=== PATIENT | female | born 1990 | race Caucasian/White ===

== ENCOUNTER 2017-05-02 05:10 | Emergency (ER) | payer OTHER ==
[2017-05-02 05:15] VITALS: RESP 16
[2017-05-02] MEDS ORDERED: KETOROLAC 30 MG/ML 1 ML VIAL IVP STA (05:38)
--- NOTE | 2017-05-02 05:43 | ED ---
Abdominal Pain HPI - General Chief Complaint: Abdominal Pain Stated Complaint: abd pain Time Seen by Provider: 05/02/17 05:27 Source: patient Mode of arrival: ambulatory Limitations: no limitations - History of Present Illness Initial Comments: This patient is 26-year-old woman presenting with left upper quadrant abdominal pain that has been going on for a little less than 24 hours now. Patient states that the pain is aching, constant, severe in intensity. She states that it's worse with pressing on the area. She has not noted any relieving factors. Patient denies having any associated symptoms. MD Complaint: abdominal pain Onset/Timin -: days(s) Location: [facility] Radiation: L flank Migration to: no migration Severity: severe Quality: sharp Consistency: constant Improves With: nothing Worsens With: other (palpation) Associated Symptoms: denies other symptoms - Related Data Home Medications Medication Instructions Recorded Confirmed HYDROcodone/APAP 5-325MG [[place] 1 tab PO QID PRN 01/08/16 01/08/16 5-325] Ibuprofen [Ibuprofen] 1 tab PO QID PRN 01/08/16 01/08/16 Previous Rx's Medication Instructions Recorded Hydrocodone/Acetaminophen [[place] 1 - 2 each PO Q4HR PRN #30 tab 01/08/16 5-325] Hydrocodone/Acetaminophen [[place] 1 each PO Q6HR PRN #20 tab 05/02/17 5-325] Ondansetron Odt [Zofran ODT] 4 mg PO Q8HR PRN #10 tab 05/02/17 Allergies Allergy/AdvReac Type Severity Reaction Status Date / Time codeine Allergy Rash/Hives Verified 05/02/17 05:15 Penicillins Allergy Unknown Verified 05/02/17 05:15 Review of Systems ROS Statement: Those systems with pertinent positive or pertinent negative responses have been documented in the HPI. ROS Other: All systems not noted in ROS Statement are negative. Constitutional: Denies: fever, chills Respiratory: Denies: cough, dyspnea Cardiovascular: Denies: chest pain, palpitations, edema Gastrointestinal: Reports: abdominal pain. Denies: nausea, vomiting, diarrhea, constipation, melena, hematochezia Genitourinary: Denies: dysuria, frequency, hematuria, abnormal menses Musculoskeletal: Denies: back pain Skin: Denies: rash Neurological: Denies: headache Past Medical History Past Medical History: No Reported History History of Any Multi-Drug Resistant Organisms: None Reported Past Surgical History: Tonsillectomy Past Psychological History: No Psychological Hx Reported Smoking Status: Current every day smoker Past Alcohol Use History: None Reported Past Drug Use History: None Reported General Exam Limitations: no limitations General appearance: alert, in no apparent distress, obese Head exam: Present: atraumatic, normocephalic Eye exam: Present: normal appearance. Absent: scleral icterus, conjunctival injection ENT exam: Present: normal oropharynx Respiratory exam: Present: normal lung sounds bilaterally. Absent: respiratory distress, wheezes, rales, rhonchi, stridor Cardiovascular Exam: Present: regular rate, normal rhythm, normal heart sounds. Absent: systolic murmur, diastolic murmur, rubs, gallop GI/Abdominal exam: Present: soft, tenderness, normal bowel sounds. Absent: distended, guarding, rebound, rigid, mass, pulsatile mass, hernia Extremities exam: Present: normal inspection, normal capillary refill. Absent: pedal edema, calf tenderness Back exam: Present: normal inspection, CVA tenderness (L). Absent: CVA tenderness (R) Neurological exam: Present: alert Skin exam: Present: warm, dry, intact, normal color. Absent: rash Course Vital Signs 05/02/17 05/02/17 05:13 07:21 Temperature 96.8 F L 97.7 F Pulse Rate 72 60 Respiratory 16 16 Rate Blood Pressure 130/79 111/55 O2 Sat by Pulse 100 97 Oximetry Medical Decision Making - Lab Data Result diagrams: 05/02/17 05:51 05/02/17 05:51 Lab Results 05/02/17 05/02/17 05/02/17 Range/Units 05:51 05:51 05:53 WBC 8.9 (3.8-10.6) k/uL RBC 4.58 (3.80-5.40) m/uL Hgb 14.0 (11.4-16.0) gm/dL Hct 42.9 (34.0-46.0) % MCV 93.5 (80.0-100.0) fL MCH 30.6 (25.0-35.0) pg MCHC 32.8 (31.0-37.0) g/dL RDW 13.7 (11.5-15.5) % Plt Count 284 (150-450) k/uL Neutrophils % 51 % Lymphocytes % 40 % Monocytes % 5 % Eosinophils % 2 % Basophils % 1 % Neutrophils # 4.5 (1.3-7.7) k/uL Lymphocytes # 3.5 (1.0-4.8) k/uL Monocytes # 0.4 (0-1.0) k/uL Eosinophils # 0.2 (0-0.7) k/uL Basophils # 0.0 (0-0.2) k/uL Sodium 141 (137-145) mmol/L Potassium 4.4 (3.5-5.1) mmol/L Chloride 107 (98-107) mmol/L Carbon Dioxide 24 (22-30) mmol/L Anion Gap 10 mmol/L BUN 9 (7-17) mg/dL Creatinine 0.58 (0.52-1.04) mg/dL Est GFR (MDRD) Af Amer >60 (>60 ml/min/1.73 sqM) Est GFR (MDRD) Non-Af >60 (>60 ml/min/1.73 sqM) Glucose 92 (74-99) mg/dL Calcium 9.8 (8.4-10.2) mg/dL Total Bilirubin 0.4 (0.2-1.3) mg/dL AST 41 H (14-36) U/L ALT 91 H (9-52) U/L Alkaline Phosphatase 93 (38-126) U/L Total Protein 7.2 (6.3-8.2) g/dL Albumin 4.2 (3.5-5.0) g/dL Amylase <30 L (30-110) U/L Lipase 55 (23-300) U/L Urine Color Urine Appearance (Clear) Urine pH (5.0-8.0) Ur Specific [place] (1.001-1.035) Urine Protein (Negative) Urine Glucose (UA) (Negative) Urine Ketones (Negative) Urine Blood (Negative) Urine Nitrite (Negative) Urine Bilirubin (Negative) Urine Urobilinogen (<2.0) mg/dL Ur Leukocyte Esterase (Negative) Urine RBC (0-5) /hpf Urine WBC (0-5) /hpf Ur Squamous Epith Cells (0-4) /hpf Urine Bacteria (None) /hpf Hyaline Casts (0-2) /lpf Urine Mucus (None) /hpf Urine HCG, Qual Not Detected (Not Detectd) 05/02/17 Range/Units 05:53 WBC (3.8-10.6) k/uL RBC (3.80-5.40) m/uL Hgb (11.4-16.0) gm/dL Hct (34.0-46.0) % MCV (80.0-100.0) fL MCH (25.0-35.0) pg MCHC (31.0-37.0) g/dL RDW (11.5-15.5) % Plt Count (150-450) k/uL Neutrophils % % Lymphocytes % % Monocytes % % Eosinophils % % Basophils % % Neutrophils # (1.3-7.7) k/uL Lymphocytes # (1.0-4.8) k/uL Monocytes # (0-1.0) k/uL Eosinophils # (0-0.7) k/uL Basophils # (0-0.2) k/uL Sodium (137-145) mmol/L Potassium (3.5-5.1) mmol/L Chloride (98-107) mmol/L Carbon Dioxide (22-30) mmol/L Anion Gap mmol/L BUN (7-17) mg/dL Creatinine (0.52-1.04) mg/dL Est GFR (MDRD) Af Amer (>60 ml/min/1.73 sqM) Est GFR (MDRD) Non-Af (>60 ml/min/1.73 sqM) Glucose (74-99) mg/dL Calcium (8.4-10.2) mg/dL Total Bilirubin (0.2-1.3) mg/dL AST (14-36) U/L ALT (9-52) U/L Alkaline Phosphatase (38-126) U/L Total Protein (6.3-8.2) g/dL Albumin (3.5-5.0) g/dL Amylase (30-110) U/L Lipase (23-300) U/L Urine Color Yellow Urine Appearance Cloudy H (Clear) Urine pH 5.5 (5.0-8.0) Ur Specific [place] 1.019 (1.001-1.035) Urine Protein Trace H (Negative) Urine Glucose (UA) Negative (Negative) Urine Ketones 2+ H (Negative) Urine Blood Negative (Negative) Urine Nitrite Negative (Negative) Urine Bilirubin Negative (Negative) Urine Urobilinogen 2.0 (<2.0) mg/dL Ur Leukocyte Esterase Negative (Negative) Urine RBC 1 (0-5) /hpf Urine WBC 3 (0-5) /hpf Ur Squamous Epith Cells 9 H (0-4) /hpf Urine Bacteria Rare H (None) /hpf Hyaline Casts 3 H (0-2) /lpf Urine Mucus Many H (None) /hpf Urine HCG, Qual (Not Detectd) Disposition Clinical Impression: Epiploic appendagitis, Abdominal pain Disposition: HOME SELF-CARE Condition: Fair Instructions: Abdominal Pain (ED) Prescriptions: Hydrocodone/Acetaminophen [[place] 5-325] 1 each PO Q6HR PRN #20 tab PRN Reason: Pain Ondansetron Odt [Zofran ODT] 4 mg PO Q8HR PRN #10 tab PRN Reason: Nausea Referrals: Nolan Reyes DO [Primary Care Provider] - 1-2 days
[2017-05-02 06:10] LABS: Basophils % (A) 1 %; CH 30.8; CHCM 33.1; Eosinophils # (A) 0.2 k/uL (0-0.7); Eosinophils % (A) 2 %; HCT 42.9 % (34.0-46.0); Luc # (Auto) 0.17; Luc % (Auto) 2; Lymphocytes # (A) 3.5 k/uL (1.0-4.8); Lymphocytes % (A) 40 %; MCH 30.6 pg (25.0-35.0); MCHC 32.8 g/dL (31.0-37.0); MCV 93.5 fL (80.0-100.0); Mean Platelet Volume 7.7; Monocytes # (A) 0.4 k/uL (0-1.0); Monocytes % (A) 5 %; Neutrophils # (A) 4.5 k/uL (1.3-7.7); Neutrophils % (A) 51 %; RBC 4.58 m/uL (3.80-5.40); RDW 13.7 % (11.5-15.5); WBC 8.9 k/uL (3.8-10.6); WBC (Perox) 8.93
[2017-05-02 06:14] LABS: Appearance,Urine Cloudy (Clear); Bacteria,Urine Rare /hpf; Bilirubin,Urine Negative (Negative); Glucose,Urine (UA) Negative (Negative); Ketones,Urine 2+ (Negative); Leukocyte Esterase,Urine Negative (Negative); Mucus,Urine Many /hpf; Nitrite,Urine Negative (Negative); PH, Urine 5.5 (5.0-8.0); Particle Count 11476; Protein,Urine Trace (Negative); RBC,Urine 1 /hpf (0-5); Specific Gravity,Urine 1.019 (1.001-1.035); Squamous Epithelial Cell,Urine 9 /hpf (0-4); UA Billing (MACRO vs. MICRO) MICRO; WBC,Urine 3 /hpf (0-5)
[2017-05-02 06:18] LABS: ALT 91 U/L (9-52); AST 41 U/L (14-36); Alkaline Phosphatase 93 U/L (38-126); Amylase <30 U/L (30-110); Anion Gap 10 mmol/L; Blood Urea Nitrogen 9 mg/dL (7-17); Calcium 9.8 mg/dL (8.4-10.2); Carbon Dioxide 24 mmol/L (22-30); Chloride 107 mmol/L (98-107); Glucose 92 mg/dL (74-99); Non-African American GFR(MDRD) >60 (>60 ml/min/1.73 sqM); Potassium 4.4 mmol/L (3.5-5.1); Sodium 141 mmol/L (137-145); Total Bilirubin 0.4 mg/dL (0.2-1.3); Total Protein 7.2 g/dL (6.3-8.2)
[2017-05-02 07:21] VITALS: BP 111/55; PULSE 60; TEMP 97.7
--- NOTE | 2017-05-02 07:39 | CT ---
EXAM: CT Abdomen and Pelvis Without Intravenous Contrast CLINICAL HISTORY: Reason: abdominal pain TECHNIQUE: Axial computed tomography images of the abdomen and pelvis without intravenous contrast. CTDI is 21.68 mGy and DLP is 1228 mGy-cm. This CT exam was performed using one or more of the following dose reduction techniques: automated exposure control, adjustment of the mA and/or kV according to patient size, and/or use of iterative reconstruction technique. COMPARISON: 01/08/16 FINDINGS: Lower thorax: Bibasilar atelectasis Small right pericardiac lymph node, unchanged compared to the prior study. Small hiatal hernia. ABDOMEN: Liver: Mild fatty infiltration of the liver. Mild hepatomegaly Gallbladder and bile ducts: Status post cholecystectomy. No ductal dilation. Pancreas: Unremarkable. No ductal dilation. Spleen: . Prominent spleen. Adrenals: Unremarkable. No mass. Kidneys and ureters: Unremarkable. No obstructing stones. No hydronephrosis. Stomach and bowel: Mild soft tissue stranding adjacent to the proximal descending colon (image 70 through 78). No evidence for small bowel obstruction. No mucosal thickening. Appendix: No CT evidence for appendicitis. PELVIS: Bladder: No bladder calcification. Mild thickening of the bladder wall likely due to underdistention. No stones. Reproductive: Small cystic lesion along the left pelvic sidewall likely ovarian cyst. This measures 2.4 cm. This is likely benign. ABDOMEN and PELVIS: Intraperitoneal space: Trace free fluid in the pelvis likely physiologic. No free air. Bones/joints: No acute fracture. No dislocation. Soft tissues: Unremarkable. Vasculature: Unremarkable. No abdominal aortic aneurysm. Lymph nodes: Small retroperitoneal lymph nodes, unchanged and likely reactive. Small mesenteric and pericecal lymph nodes, nonspecific. These appear unchanged compared to the prior study. Periumbilical hernia containing fat. IMPRESSION: Finding adjacent to the proximal descending colon likely epiploic appendagitis No renal or ureteral calculus. Left adnexal cyst, likely benign. Trace free fluid in the pelvis, nonspecific and likely physiologic. Additional findings as noted above . [employer] 05/02/17 07:56 Verify Receipt Verified receipt with AMANDEEP Joyce for Dr. Angeles on 05/02 07:55 (-05:00)
[2017-05-02] MEDS ORDERED: MORPHINE SULFATE 4 MG/ML SYRINGE IV STA (07:41)
== END 2017-05-02 08:00 | disposition home or self-care (01) ==
LOC: EC 05:10
DX: K63.89 Other specified diseases of intestine (principal); F17.200 Nicotine dependence, unspecified, uncomplicated; Z88.0 Allergy status to penicillin; Z88.5 Allergy status to narcotic agent
CPT/HCPCS: 36415; 80053; 82150; 83690; 85025; 81001; 81025; 74176; 99284; 96374; 96375; J2270; J1885

== ENCOUNTER 2017-05-29 19:01 | Emergency (ER) | payer OTHER ==
[2017-05-29 19:13] VITALS: BP 146/63; PULSE 105; RESP 18; TEMP 98.2
--- NOTE | 2017-05-29 19:22 | ED ---
General Adult HPI - General Chief complaint: Extremity Injury, Upper Stated complaint: rt hand injury Time Seen by Provider: 05/29/17 19:13 Source: patient, RN notes reviewed Mode of arrival: ambulatory Limitations: no limitations - History of Present Illness Initial comments: Patient 26-year-old female who presents emergency room today with a chief complaint of an injury to the right hand that occurred early today. Patient states she actually shorter hand in the car door. Does admit to pain around the first and second MCP joints. Patient does admit to pain with flexion. Denies any other complaints or symptoms. Patient denies any recent fever, chills , shortness of breath, chest pain, back pain, abdominal pain, nausea or vomiting , numbness or tingling, or any other complaints. - Related Data Home Medications Medication Instructions Recorded Confirmed Ibuprofen [Motrin] 200 - 400 mg PO Q6H PRN 05/29/17 05/29/17 Allergies Allergy/AdvReac Type Severity Reaction Status Date / Time codeine Allergy Rash/Hives Verified 05/29/17 19:23 Penicillins Allergy Unknown Verified 05/29/17 19:23 Review of Systems ROS Statement: Those systems with pertinent positive or pertinent negative responses have been documented in the HPI. ROS Other: All systems not noted in ROS Statement are negative. Past Medical History Past Medical History: No Reported History History of Any Multi-Drug Resistant Organisms: None Reported Past Surgical History: Cholecystectomy, Tonsillectomy Past Psychological History: No Psychological Hx Reported Smoking Status: Current every day smoker Past Alcohol Use History: None Reported Past Drug Use History: None Reported General Exam - General Exam Comments Initial Comments: General: The patient is awake and alert, in no distress, and does not appear acutely ill. Neck: The neck is supple, there is no tenderness or JVD. Cardiovascular: There is a regular rate and rhythm. No murmur, rub or gallop is appreciated. Respiratory: Lungs are clear to auscultation, respirations are non-labored, breath sounds are equal. No wheezes, stridor, rales, or rhonchi. Musculoskeletal: Patient does have a normal appearance of the right hand no obvious swelling, bruising, or deformity. Patient has Refill less than 2 seconds. Sensations are intact. Pulses equal bilaterally 2+. shows good range of motion. Does have tenderness on palpation to the proximal second and third digits and MCP joint. Neurological: A&O x 3. CN II-XII intact, There are no obvious motor or sensory deficits. Coordination appears grossly intact. Speech is normal. Skin: Skin is warm and dry and no rashes or lesions are noted. Psychiatric: Normal mood and affect. Limitations: no limitations Course Vital Signs 05/29/17 19:11 Temperature 98.2 F Pulse Rate 105 H Respiratory 18 Rate Blood Pressure 146/63 O2 Sat by Pulse 98 Oximetry Medical Decision Making - Medical Decision Making X-ray reviewed shows no evidence for acute fracture dislocation. Results were discussed with the patient. Advised to continue ice elevate the affected area and follow-up in 7-10 days for repeat x-rays if symptoms persist. Disposition Clinical Impression: Contusion, hand Disposition: HOME SELF-CARE Condition: Good Instructions: Contusion in Adults (ED) Additional Instructions: Please continue to ice elevate the affected area at least 4 times a day for 20 minutes at a time. Please use Tylenol/ibuprofen for pain as needed. Please follow-up the family doctor or orthopedics in 7-10 days if symptoms persist for repeat x-rays. Please return to emergency room for any other concerns. Referrals: Nolan Reyes DO [Primary Care Provider] - 1-2 days Sam Marie MD [STAFF PHYSICIAN] - 1-2 days Time of Disposition: 20:08
--- NOTE | 2017-05-29 20:28 | XR ---
PROCEDURE: XR hand complete RT, 3 views DATE AND TIME: 05/29/2017 7:53 PM REFERRING PHYSICIAN: Robinson Murrieta CLINICAL INDICATION: PHH, Pain. Right hand pain at the second digit after trauma TECHNIQUE: Department protocol. COMPARISON: None FINDINGS: BONES AND JOINTS: There is no fracture or malalignment. SOFT TISSUES: There is a 1 mm metallic opacity within the palmar soft tissues. This projects immediat aric medial to the neck of the fourth metacarpal on the AP view, immediately over the fourth metacarpa l neck on the oblique AP view, and in the far anterior volar soft tissues on the lateral view. The so ft tissues are otherwise unremarkable. IMPRESSION: 1. NEGATIVE FOR FRACTURE OR MALALIGNMENT. 2. 1 MM METALLIC OPACITY DESCRIBED.
== END 2017-05-29 20:28 | disposition home or self-care (01) ==
LOC: EC 19:01
DX: S60.221A Contusion of right hand, initial encounter (principal); F17.200 Nicotine dependence, unspecified, uncomplicated; Z88.0 Allergy status to penicillin; Z88.5 Allergy status to narcotic agent; W23.0XXA Caught, crushed, jammed, or pinched between moving objects, initial encounter
CPT/HCPCS: 99283

== ENCOUNTER 2017-06-27 14:08 | Emergency (ER) | payer OTHER ==
[2017-06-27 14:17] VITALS: RESP 18
[2017-06-27] MEDS ORDERED: MAG HYDROX/AL HYDROX/SIMETH 30 ML, HYOSCYAMINE ELIXIR 10 ML, CIMETIDINE HCL 300 MG, LID... PO STA ×4 (14:54)
[2017-06-27] MEDS ORDERED: SODIUM CHLORIDE 0.9% 1,000 ML IV ONE (14:54)
[2017-06-27] MEDS ORDERED: ONDANSETRON 4 MG/2 ML VIAL IVP STA (14:54)
--- NOTE | 2017-06-27 15:12 | ED ---
Abdominal Pain HPI - General Chief Complaint: Abdominal Pain Stated Complaint: Rt side pain Time Seen by Provider: 06/27/17 14:19 Source: patient Mode of arrival: ambulatory Limitations: no limitations - History of Present Illness Initial Comments: 26-year-old female with past medical history of cholecystectomy presented for evaluation of epigastric abdominal pain that is present for the last week. She states that the pain is a sharp nonradiating pain that is 8/10. Comes in waves however today has been more constant. Has been waking her from sleep at night and is worse with foods. States that this is similar to when she had epiploic appendigitis. Hasn't taken anything to alleviate her symptoms. There is associated nausea and diarrhea. Positive flatus. No distention. - Related Data Previous Rx's Medication Instructions Recorded Ranitidine HCl [Zantac] 150 mg PO BID #60 tab 06/27/17 Allergies Allergy/AdvReac Type Severity Reaction Status Date / Time codeine Allergy Rash/Hives Verified 06/27/17 14:34 Penicillins Allergy Unknown Verified 06/27/17 14:34 Review of Systems ROS Statement: Those systems with pertinent positive or pertinent negative responses have been documented in the HPI. ROS Other: All systems not noted in ROS Statement are negative. Constitutional: Denies: fever, chills, weakness, weight change, night sweats Eyes: Denies: eye pain, vision change ENT: Denies: ear pain, throat pain Respiratory: Denies: cough, dyspnea Cardiovascular: Denies: chest pain, palpitations Endocrine: Denies: polydipsia, polyuria Gastrointestinal: Reports: abdominal pain, nausea, diarrhea. Denies: as per HPI , vomiting, constipation, hematemesis, melena, hematochezia Genitourinary: Denies: urgency, dysuria Musculoskeletal: Denies: back pain, arthralgia, myalgia Skin: Denies: rash, lesions Neurological: Denies: headache, weakness Psychiatric: Denies: anxiety, depression Hematological/Lymphatic: Denies: easy bleeding, easy bruising Past Medical History Past Medical History: No Reported History History of Any Multi-Drug Resistant Organisms: None Reported Past Surgical History: Cholecystectomy, Tonsillectomy Past Psychological History: No Psychological Hx Reported Smoking Status: Current every day smoker Past Alcohol Use History: None Reported Past Drug Use History: None Reported General Exam Limitations: no limitations General appearance: alert, in no apparent distress Head exam: Present: atraumatic, normocephalic Eye exam: Present: normal appearance, PERRL, EOMI. Absent: scleral icterus ENT exam: Present: normal exam, normal oropharynx Neck exam: Present: normal inspection, full ROM. Absent: tenderness Respiratory exam: Present: normal lung sounds bilaterally. Absent: respiratory distress, wheezes, rales, rhonchi, stridor Cardiovascular Exam: Present: regular rate, normal rhythm GI/Abdominal exam: Present: soft, tenderness (epigastric). Absent: distended, guarding, rebound, rigid, hernia Rectal exam: Present: deferred Extremities exam: Present: normal inspection, full ROM Back exam: Present: normal inspection, full ROM. Absent: tenderness, CVA tenderness (R), CVA tenderness (L), paraspinal tenderness, vertebral tenderness Neurological exam: Present: alert, oriented X3, normal gait Psychiatric exam: Present: normal affect, normal mood Skin exam: Present: warm, dry, intact, normal color Course Vital Signs 06/27/17 06/27/17 14:14 17:00 Temperature 97.9 F 99.0 F Pulse Rate 82 63 Respiratory 18 18 Rate Blood Pressure 120/79 121/66 O2 Sat by Pulse 99 99 Oximetry Medical Decision Making - Medical Decision Making 6-year-old female with past medical history of cholecystectomy presenting for evaluation of epigastric abdominal pain since Monday. On physical examination she appears to be in no apparent distress. There is tenderness to palpation in the epigastric area however there are no peritoneal signs of guarding, rigidity, or rebound. States this is similar to when she had epiploic appendagitis. COncern for recurrent epliploic appendigitis vs PUD/ gastritis, vs pancreatitis. Will obtain labs and provide symptom control & IVF. Labs revealed a mild leukocytosis and a contaminated urinalysis. The remainder revealed no significant abnormalities. The patient was reevaluated and had improvement in her symptoms. She was informed of all results and through shared decision making it was determined that she would be discharged with instructions to follow-up with her primary care physician but to return to this facility if her symptoms should worsen or persist. The patient acknowledged an understanding of all the patient provided and agreed with this plan of care. - Lab Data Result diagrams: 06/27/17 15:38 06/27/17 15:38 Lab Results 06/27/17 06/27/17 06/27/17 Range/Units 15:19 15:19 15:38 WBC 13.3 H (3.8-10.6) k/uL RBC 5.08 (3.80-5.40) m/uL Hgb 15.6 (11.4-16.0) gm/dL Hct 47.3 H (34.0-46.0) % MCV 93.1 (80.0-100.0) fL MCH 30.6 (25.0-35.0) pg MCHC 32.9 (31.0-37.0) g/dL RDW 12.9 (11.5-15.5) % Plt Count 284 (150-450) k/uL Neutrophils % 60 % Lymphocytes % 33 % Monocytes % 4 % Eosinophils % 1 % Basophils % 0 % Neutrophils # 8.0 H (1.3-7.7) k/uL Lymphocytes # 4.4 (1.0-4.8) k/uL Monocytes # 0.5 (0-1.0) k/uL Eosinophils # 0.2 (0-0.7) k/uL Basophils # 0.1 (0-0.2) k/uL Sodium (137-145) mmol/L Potassium (3.5-5.1) mmol/L Chloride (98-107) mmol/L Carbon Dioxide (22-30) mmol/L Anion Gap mmol/L BUN (7-17) mg/dL Creatinine (0.52-1.04) mg/dL Est GFR (MDRD) Af Amer (>60 ml/min/1.73 sqM) Est GFR (MDRD) Non-Af (>60 ml/min/1.73 sqM) Glucose (74-99) mg/dL Calcium (8.4-10.2) mg/dL Total Bilirubin (0.2-1.3) mg/dL AST (14-36) U/L ALT (9-52) U/L Alkaline Phosphatase (38-126) U/L Total Protein (6.3-8.2) g/dL Albumin (3.5-5.0) g/dL Lipase (23-300) U/L Urine Color Yellow Urine Appearance Cloudy H (Clear) Urine pH 6.0 (5.0-8.0) Ur Specific [place] 1.014 (1.001-1.035) Urine Protein Negative (Negative) Urine Glucose (UA) Negative (Negative) Urine Ketones Negative (Negative) Urine Blood Negative (Negative) Urine Nitrite Negative (Negative) Urine Bilirubin Negative (Negative) Urine Urobilinogen 2.0 (<2.0) mg/dL Ur Leukocyte Esterase Moderate H (Negative) Urine WBC 7 H (0-5) /hpf Ur Squamous Epith Cells 28 H (0-4) /hpf Urine Mucus Few H (None) /hpf Urine HCG, Qual Not Detected (Not Detectd) 06/27/17 Range/Units 15:38 WBC (3.8-10.6) k/uL RBC (3.80-5.40) m/uL Hgb (11.4-16.0) gm/dL Hct (34.0-46.0) % MCV (80.0-100.0) fL MCH (25.0-35.0) pg MCHC (31.0-37.0) g/dL RDW (11.5-15.5) % Plt Count (150-450) k/uL Neutrophils % % Lymphocytes % % Monocytes % % Eosinophils % % Basophils % % Neutrophils # (1.3-7.7) k/uL Lymphocytes # (1.0-4.8) k/uL Monocytes # (0-1.0) k/uL Eosinophils # (0-0.7) k/uL Basophils # (0-0.2) k/uL Sodium 142 (137-145) mmol/L Potassium 4.5 (3.5-5.1) mmol/L Chloride 105 (98-107) mmol/L Carbon Dioxide 29 (22-30) mmol/L Anion Gap 8 mmol/L BUN 6 L (7-17) mg/dL Creatinine 0.59 (0.52-1.04) mg/dL Est GFR (MDRD) Af Amer >60 (>60 ml/min/1.73 sqM) Est GFR (MDRD) Non-Af >60 (>60 ml/min/1.73 sqM) Glucose 84 (74-99) mg/dL Calcium 9.2 (8.4-10.2) mg/dL Total Bilirubin 0.2 (0.2-1.3) mg/dL AST 21 (14-36) U/L ALT 58 H (9-52) U/L Alkaline Phosphatase 80 (38-126) U/L Total Protein 6.0 L (6.3-8.2) g/dL Albumin 3.6 (3.5-5.0) g/dL Lipase 54 (23-300) U/L Urine Color Urine Appearance (Clear) Urine pH (5.0-8.0) Ur Specific [place] (1.001-1.035) Urine Protein (Negative) Urine Glucose (UA) (Negative) Urine Ketones (Negative) Urine Blood (Negative) Urine Nitrite (Negative) Urine Bilirubin (Negative) Urine Urobilinogen (<2.0) mg/dL Ur Leukocyte Esterase (Negative) Urine WBC (0-5) /hpf Ur Squamous Epith Cells (0-4) /hpf Urine Mucus (None) /hpf Urine HCG, Qual (Not Detectd) Disposition Clinical Impression: Abdominal pain, Leukocytosis Disposition: HOME SELF-CARE Condition: Stable Instructions: Abdominal Pain (ED) Additional Instructions: Please use medication as discussed. Please follow up with family doctor if symptoms have not improved over the next two days. Please return to the emergency room if your symptoms increase or worsen or for any other concerns. Prescriptions: Ranitidine HCl [Zantac] 150 mg PO BID #60 tab Referrals: Nolan Reyes DO [Primary Care Provider] - 1-2 days Time of Disposition: 16:36
[2017-06-27 15:55] LABS: Appearance,Urine Cloudy (Clear); Bilirubin,Urine Negative (Negative); Blood,Urine Negative (Negative); Color,Urine Yellow; Glucose,Urine (UA) Negative (Negative); Ketones,Urine Negative (Negative); Leukocyte Esterase,Urine Moderate (Negative); Mucus,Urine Few /hpf; Nitrite,Urine Negative (Negative); Protein,Urine Negative (Negative); Specific Gravity,Urine 1.014 (1.001-1.035); Squamous Epithelial Cell,Urine 28 /hpf (0-4); WBC,Urine 7 /hpf (0-5)
[2017-06-27 15:59] LABS: Basophils # (A) 0.1 k/uL (0-0.2); Basophils % (A) 0 %; Eosinophils # (A) 0.2 k/uL (0-0.7); Eosinophils % (A) 1 %; HCT 47.3 % (34.0-46.0); HGB 15.6 gm/dL (11.4-16.0); Lymphocytes # (A) 4.4 k/uL (1.0-4.8); Lymphocytes % (A) 33 %; MCH 30.6 pg (25.0-35.0); MCHC 32.9 g/dL (31.0-37.0); MCV 93.1 fL (80.0-100.0); Mean Platelet Volume 7.1; Monocytes # (A) 0.5 k/uL (0-1.0); Monocytes % (A) 4 %; Neutrophils % (A) 60 %; Platelet Count 284 k/uL (150-450); RBC 5.08 m/uL (3.80-5.40); RDW 12.9 % (11.5-15.5); WBC 13.3 k/uL (3.8-10.6)
[2017-06-27 16:05] LABS: ALT 58 U/L (9-52); AST 21 U/L (14-36); Albumin 3.6 g/dL (3.5-5.0); Alkaline Phosphatase 80 U/L (38-126); Anion Gap 8 mmol/L; Blood Urea Nitrogen 6 mg/dL (7-17); Calcium 9.2 mg/dL (8.4-10.2); Carbon Dioxide 29 mmol/L (22-30); Chloride 105 mmol/L (98-107); Glucose 84 mg/dL (74-99); Lipase 54 U/L (23-300); Potassium 4.5 mmol/L (3.5-5.1); Sodium 142 mmol/L (137-145); Total Bilirubin 0.2 mg/dL (0.2-1.3)
[2017-06-27 17:01] VITALS: BP 121/66; PULSE 63; TEMP 99
== END 2017-06-27 17:06 | disposition home or self-care (01) ==
LOC: EC 14:08
DX: R10.13 Epigastric pain (principal); D72.829 Elevated white blood cell count, unspecified; R19.7 Diarrhea, unspecified; R11.0 Nausea; F17.200 Nicotine dependence, unspecified, uncomplicated; Z88.0 Allergy status to penicillin; Z88.5 Allergy status to narcotic agent
CPT/HCPCS: 36415; 80053; 83690; 85025; 81001; 81025; 99284; 96374; 96361; J2405

== ENCOUNTER 2017-10-22 16:20 | Emergency (ER) | payer OTHER ==
[2017-10-22 16:42] VITALS: BP 131/72; PULSE 97; RESP 18; TEMP 98.5
--- NOTE | 2017-10-22 17:00 | ED ---
Headache HPI - General Chief Complaint: Headache Stated Complaint: Headache Time Seen by Provider: 10/22/17 16:44 Source: patient, RN notes reviewed Mode of arrival: ambulatory Limitations: no limitations - History of Present Illness Initial Comments: This is a 26-year-old female presents emergency Department chief complaint of headaches. She states she's been having on and off headaches for the last 45 days. She has not seen her primary care physician for headaches. She states that she's had no prior imaging including CAT scan or MRI. Patient states the headaches [place] right side. Patient states that she had numbness in the right side of her face the left side. patient denies any focal weakness denies any nausea vomiting diarrhea constipation. denies any trauma. she states she did ibuprofen other day has not taken anything recently for headache. patient denies any new medications denies any neck pain no uri symptoms. - Related Data Previous Rx's Medication Instructions Recorded Ranitidine HCl [Zantac] 150 mg PO BID #60 tab 06/27/17 Butalb/APAP/Caff 50-325-40Mg 1 tab PO Q4H PRN #14 tablet 10/22/17 [Fioricet 50-325-40] Allergies Allergy/AdvReac Type Severity Reaction Status Date / Time codeine Allergy Rash/Hives Verified 10/22/17 16:42 Penicillins Allergy Unknown Verified 10/22/17 16:42 Review of Systems ROS Statement: Those systems with pertinent positive or pertinent negative responses have been documented in the HPI. ROS Other: All systems not noted in ROS Statement are negative. Past Medical History Past Medical History: No Reported History History of Any Multi-Drug Resistant Organisms: None Reported Past Surgical History: Cholecystectomy, Tonsillectomy Past Psychological History: No Psychological Hx Reported Smoking Status: Current every day smoker Past Alcohol Use History: None Reported Past Drug Use History: Marijuana General Exam Limitations: no limitations General appearance: alert, in no apparent distress Head exam: Present: atraumatic, normocephalic, normal inspection Eye exam: Present: normal appearance, PERRL, EOMI. Absent: scleral icterus, conjunctival injection, periorbital swelling ENT exam: Present: normal exam, normal oropharynx, mucous membranes moist Neck exam: Present: normal inspection, full ROM. Absent: tenderness, meningismus, lymphadenopathy Respiratory exam: Present: normal lung sounds bilaterally. Absent: respiratory distress, wheezes, rales, rhonchi, stridor Cardiovascular Exam: Present: regular rate, normal rhythm, normal heart sounds. Absent: systolic murmur, diastolic murmur, rubs, gallop, clicks GI/Abdominal exam: Present: soft, normal bowel sounds. Absent: distended, tenderness, guarding, rebound, rigid Extremities exam: Present: normal inspection, full ROM, normal capillary refill. Absent: tenderness, pedal edema, joint swelling, calf tenderness Neurological exam: Present: alert, oriented X3, CN II-XII intact, normal gait, reflexes normal, other (Finger to nose intact bilaterally). Absent: motor sensory deficit Skin exam: Present: warm, dry, intact, normal color. Absent: rash Course Vital Signs 10/22/17 16:38 Temperature 98.5 F Pulse Rate 97 Respiratory 18 Rate Blood Pressure 131/72 O2 Sat by Pulse 98 Oximetry Medical Decision Making - Medical Decision Making 26-year-old female presents for headache. Patient's headache has been on and off for last 45 days. Patient has no acute findings in the emergency department. Patient has a normal neuro exam she did have a CT as she's had no prior imaging. CT does not show anything acute. She will follow-up with on- call neurology Dr. Mendieta for MRI and further workup. Patient will be given Toradol, Fioricet. Patient will be discharged return parameters were discussed. Disposition Clinical Impression: Frequent headaches Disposition: HOME SELF-CARE Condition: Stable Instructions: Acute Headache (ED) Additional Instructions: Please return to the Emergency Department if symptoms worsen or any other concerns. Prescriptions: Butalb/APAP/Caff 50-325-40Mg [Fioricet 50-325-40] 1 tab PO Q4H PRN #14 tablet PRN Reason: Headache Is patient prescribed a controlled substance at d/c from ED?: No Referrals: Nolan Reyes DO [Primary Care Provider] - 1-2 days Jose Rafael Mendieta MD [STAFF PHYSICIAN] - 1-2 days Time of Disposition: 17:18
--- NOTE | 2017-10-22 17:14 | CT ---
EXAMINATION TYPE: CT brain wo con DATE OF EXAM: 10/22/2017 COMPARISON: 11/09/2012 HISTORY: Patient complains of headache, bilateral hand weakness, and right side facial numbness today . CT DLP: 831.1 mGycm. Automated Exposure Control for Dose Reduction was Utilized. TECHNIQUE: CT scan of the head is performed without contrast. FINDINGS: There is no acute intracranial hemorrhage, mass effect, or midline shift identified. No suspicious extra-axial fluid collection is seen. Punctate calcification in the left basal ganglia is incidentally noted. The ventricles and sulci are within normal limits in size. The globes are intact and the visualized sinuses are clear. Cerumen impaction is incidentally noted within the right exter nal auditory canal. IMPRESSION: No acute intracranial hemorrhage, mass effect, or midline shift is seen. MR could be per formed for further evaluation given the patient's clinical symptoms.
[2017-10-22] MEDS ORDERED: BUTALB/APAP/CAFF 50-325-40MG TAB PO STA (17:15)
[2017-10-22] MEDS ORDERED: KETOROLAC 60 MG/2 ML VIAL IM STA (17:15)
== END 2017-10-22 17:36 | disposition home or self-care (01) ==
LOC: EC 16:20
DX: R51 Headache (principal); F17.200 Nicotine dependence, unspecified, uncomplicated; Z88.5 Allergy status to narcotic agent; Z88.0 Allergy status to penicillin
CPT/HCPCS: 70450; 99284; 96372; J1885

== ENCOUNTER 2017-12-22 17:04 | Emergency (ER) | payer OTHER ==
--- NOTE | 2017-12-22 18:43 | ED ---
General Adult HPI - General Chief complaint: Extremity Injury, Lower Stated complaint: rt foot injury Time Seen by Provider: 12/22/17 17:36 Source: patient, RN notes reviewed Mode of arrival: wheelchair Limitations: no limitations - History of Present Illness Initial comments: Patient 27-year-old female presenting to the emergency room today with a chief complaint of injury to the right foot. She states she was coming out of the garage and she stepped wrong and she felt pop on the lateral aspect. Patient states this tender with bearing weight and ambulation. Patient denies any other complaints or symptoms. Patient denies any recent fever, chills, shortness of breath, chest pain, back pain, abdominal pain, nausea or vomiting, numbness or tingling, or any other complaints. - Related Data Previous Rx's Medication Instructions Recorded Ibuprofen [Motrin] 600 mg PO Q6HR PRN #40 day 12/22/17 Allergies Allergy/AdvReac Type Severity Reaction Status Date / Time codeine Allergy Rash/Hives Verified 12/22/17 17:45 Penicillins Allergy Unknown Verified 12/22/17 17:45 Review of Systems ROS Statement: Those systems with pertinent positive or pertinent negative responses have been documented in the HPI. ROS Other: All systems not noted in ROS Statement are negative. Past Medical History Past Medical History: No Reported History History of Any Multi-Drug Resistant Organisms: None Reported Past Surgical History: Cholecystectomy, Tonsillectomy Past Psychological History: No Psychological Hx Reported Smoking Status: Current every day smoker Past Alcohol Use History: None Reported Past Drug Use History: Marijuana General Exam - General Exam Comments Initial Comments: General: The patient is awake and alert, in no distress, and does not appear acutely ill. Neck: The neck is supple, there is no tenderness or JVD. Musculoskeletal: Normal appearance of the right foot and ankle no obvious deformity. Mild swelling over the lateral aspect. Mildly tender over the third and fourth proximal metatarsals. Tender in the ATFL area. Sensations intact pulses equal bilateral 2+. Neurological: A&O x 3. CN II-XII intact, There are no obvious motor or sensory deficits. Coordination appears grossly intact. Speech is normal. Skin: Skin is warm and dry and no rashes or lesions are noted. Psychiatric: Normal mood and affect. Limitations: no limitations Course Vital Signs 12/22/17 17:29 Temperature 98.8 F Pulse Rate 76 Respiratory 18 Rate Blood Pressure 91/57 O2 Sat by Pulse 98 Oximetry Medical Decision Making - Medical Decision Making Patient's x-rays reviewed are negative for any acute fracture dislocation. Patient is followed up with orthopedics in 7-10 days for repeat x-rays. Advised most likely ankle sprain at this time. Will be given Lito wrap or ankle brace to use when up and moving around. Advised not to sleep with this on. Advised to use ibuprofen for pain. Disposition Clinical Impression: Ankle sprain Disposition: HOME SELF-CARE Condition: Good Instructions: Ankle Sprain (ED) Additional Instructions: Please continue to ice elevate the affected area please 4 times daily. Please use ankle brace when up and moving around but do not sleep with it on. Please follow-up with orthopedics over the next 7-10 days if symptoms persist. Please return to emergency room for any other concerns. Prescriptions: Ibuprofen [Motrin] 600 mg PO Q6HR PRN #40 day PRN Reason: Pain Is patient prescribed a controlled substance at d/c from ED?: No Referrals: Nolan Reyes DO [Primary Care Provider] - 1-2 days Betty Perkins PAC [PHYSICIAN L[employer] INST[employer]ER] - 1-2 days Time of Disposition: 18:54
--- NOTE | 2017-12-22 18:49 | XR ---
PROCEDURE: XR foot complete RT 3 views DATE AND TIME: 12/22/2017 6:01 PM REFERRING PHYSICIAN: Robinson Murrieta CLINICAL INDICATION: PHH, Pain TECHNIQUE: Department protocol. COMPARISON: None FINDINGS: There is no fracture or malalignment. The soft tissues are unremarkable. IMPRESSION: NO ACUTE PROCESS.
--- NOTE | 2017-12-22 18:49 | XR ---
PROCEDURE: XR ankle complete RT 3 views DATE AND TIME: 12/22/2017 6:01 PM REFERRING PHYSICIAN: Robinson Murrieta CLINICAL INDICATION: PHH, Pain TECHNIQUE: Department protocol. COMPARISON: None FINDINGS: There is no fracture or malalignment. The soft tissues are unremarkable. IMPRESSION: NO ACUTE PROCESS.
[2017-12-22 19:16] VITALS: BP 110/60; PULSE 75; RESP 16; TEMP 98.7
== END 2017-12-22 19:14 | disposition home or self-care (01) ==
LOC: EC 17:04
DX: S93.401A Sprain of unspecified ligament of right ankle, initial encounter (principal); F17.200 Nicotine dependence, unspecified, uncomplicated; Z88.5 Allergy status to narcotic agent; Z88.0 Allergy status to penicillin; X58.XXXA Exposure to other specified factors, initial encounter; Y92.59 Other trade areas as the place of occurrence of the external cause
CPT/HCPCS: 73610; 73630; 99283; 29515; L4350

== ENCOUNTER → 2019-11-20 | Outpatient (CLI) | payer OTHER ==
--- NOTE | 2019-11-20 15:02 | XR ---
Right hand HISTORY: Trauma, pain to fourth and fifth carpal 3 views of the right hand, correlation to prior exam 05/29/2017 Bone mineralization, joint spaces and alignment are stable. Metallic foreign body persists between th e distal fourth and fifth metacarpals. Small ossific density distal to the ulnar styloid is stable an d well corticated. IMPRESSION: No acute fracture or dislocation is evident.
== END | disposition home or self-care (01) ==
LOC: RADXRMAIN 14:07
PROVIDERS: ATTEND Family Medicine
DX: M79.641 Pain in right hand (principal)

== ENCOUNTER 2020-01-05 21:54 | Emergency (ER) | payer OTHER ==
[2020-01-05 21:59] VITALS: BP 122/88; PULSE 79; RESP 16; TEMP 98.4
--- NOTE | 2020-01-05 22:37 | XR ---
EXAMINATION TYPE: XR hand complete LT DATE OF EXAM: 01/05/2020 COMPARISON: NONE HISTORY: Metacarpal pain. TECHNIQUE: 3 views FINDINGS: Metacarpals appear intact. I see no fracture nor dislocation. Carpal bones are intact. Join t spaces are fairly normal. IMPRESSION: Negative left hand exam. No fracture seen.
--- NOTE | 2020-01-05 22:39 | ED ---
General Adult HPI - General Chief complaint: Extremity Injury, Upper Stated complaint: L Hand Injury Time Seen by Provider: 01/05/20 22:01 Source: patient, RN notes reviewed Mode of arrival: ambulatory Limitations: no limitations - History of Present Illness Initial comments: 29-year-old female presents for left hand pain. Patient closed her hand in a van door just prior to arrival. Patient states she has pain in the back of the hand. Denies difficulty moving the fingers but does state this is painful. She denies any other injury.Patient has no other complaints at this time including shortness of breath, chest pain, abdominal pain, nausea or vomiting, headache, or visual changes. - Related Data Previous Rx's Medication Instructions Recorded Ibuprofen [Motrin] 600 mg PO Q6HR PRN #40 day 12/22/17 Allergies Allergy/AdvReac Type Severity Reaction Status Date / Time codeine Allergy Rash/Hives Verified 01/05/20 21:59 Penicillins Allergy Unknown Verified 01/05/20 21:59 Review of Systems ROS Statement: Those systems with pertinent positive or pertinent negative responses have been documented in the HPI. ROS Other: All systems not noted in ROS Statement are negative. Past Medical History Past Medical History: No Reported History History of Any Multi-Drug Resistant Organisms: None Reported Past Surgical History: Cholecystectomy, Tonsillectomy Past Psychological History: No Psychological Hx Reported Past Alcohol Use History: None Reported Past Drug Use History: Marijuana General Exam Limitations: no limitations General appearance: alert, in no apparent distress Head exam: Present: atraumatic, normocephalic, normal inspection Eye exam: Present: normal appearance, PERRL, EOMI. Absent: scleral icterus, conjunctival injection, periorbital swelling ENT exam: Present: normal exam, mucous membranes moist Neck exam: Present: normal inspection. Absent: tenderness, meningismus, lymphadenopathy Respiratory exam: Present: normal lung sounds bilaterally. Absent: respiratory distress, wheezes, rales, rhonchi, stridor Cardiovascular Exam: Present: regular rate, normal rhythm, normal heart sounds. Absent: systolic murmur, diastolic murmur, rubs, gallop, clicks Extremities exam: Present: full ROM (Patient has full range of motion of the left. However movement of the fingers does elicit pain.), tenderness (Tenderness to the distal aspect of the dorsum of the left hand.), normal capillary refill (Capillary refill less than 2 seconds, radial pulse 2+ in the left upper extremity.), other (Patient has minimal edema of the dorsum of the left hand. No erythema. No lacerations.). Absent: pedal edema, joint swelling, calf tenderness Course Vital Signs 01/05/20 21:56 Temperature 98.4 F Pulse Rate 79 Respiratory 16 Rate Blood Pressure 122/88 O2 Sat by Pulse 98 Oximetry Medical Decision Making - Medical Decision Making X-ray of the left hand is negative. Patient was wrapped with an Lito wrap. Patient will follow up with primary care and orthopedics. Will return here for any worsening symptoms. Care instructions as documented in discharge instr uctions. Disposition Clinical Impression: Hand pain, left Disposition: HOME SELF-CARE Condition: Good Instructions (If sedation given, give patient instructions): Contusion in Adults (ED) Additional Instructions: Please take Motrin and Tylenol for pain. Use Lito wrap as needed. Rest ice and elevate the left hand. Follow-up with primary care in 1-2 days. Return here to the emergency room for any worsening symptoms. Is patient prescribed a controlled substance at d/c from ED?: No Referrals: Onur Suarez MD [Primary Care Provider] - 1-2 days Daniel Delgado DO [Medical Doctor] - 1-2 days Time of Disposition: 22:38
== END 2020-01-05 23:05 | disposition home or self-care (01) ==
LOC: EC 21:54
DX: S69.82XA Other specified injuries of left wrist, hand and finger(s), initial encounter (principal); Z88.5 Allergy status to narcotic agent; Z88.0 Allergy status to penicillin; W22.8XXA Striking against or struck by other objects, initial encounter
CPT/HCPCS: 99283

== ENCOUNTER → 2020-03-20 | Outpatient (CLI) | payer OTHER | END | disposition home or self-care (01) | LOC: LABWHC1 15:47 | PROVIDERS: ATTEND Family Medicine | DX: Z03.818 Encounter for observation for suspected exposure to other biological agents ruled out (principal) | CPT/HCPCS: U0003; C9803 ==

== ENCOUNTER 2020-06-22 11:27 | Emergency (ER) | payer OTHER ==
[2020-06-22 11:34] VITALS: BP 127/82; PULSE 72; RESP 18; TEMP 98
--- NOTE | 2020-06-22 11:58 | ED ---
General Adult HPI - General Chief complaint: Recheck/Abnormal Lab/Rx Stated complaint: Covid symptoms Time Seen by Provider: 06/22/20 11:35 Source: patient, RN notes reviewed Mode of arrival: ambulatory Limitations: no limitations - History of Present Illness Initial comments: 29-year-old female presents emergency Department with chief complaint of short ness of breath, possible covid. Patient states that her girlfriend was positive recently. Patient states started with symptoms one week ago. Patient states symptoms are worsening. She's been having intermittent shortness of breath, cough congestion bodyaches fevers chills. No GI symptoms including nausea vomiting diarrhea constipation. Patient does have a history of asthma. - Related Data Previous Rx's Medication Instructions Recorded Ibuprofen [Motrin] 600 mg PO Q6HR PRN #40 day 12/22/17 Allergies Allergy/AdvReac Type Severity Reaction Status Date / Time codeine Allergy Rash/Hives Verified 06/22/20 11:33 Penicillins Allergy Unknown Verified 06/22/20 11:33 Review of Systems ROS Statement: Those systems with pertinent positive or pertinent negative responses have been documented in the HPI. ROS Other: All systems not noted in ROS Statement are negative. Past Medical History Past Medical History: No Reported History History of Any Multi-Drug Resistant Organisms: None Reported Past Surgical History: Cholecystectomy, Tonsillectomy Past Psychological History: No Psychological Hx Reported Smoking Status: Current every day smoker Past Alcohol Use History: None Reported Past Drug Use History: Marijuana General Exam Limitations: no limitations General appearance: alert, in no apparent distress Head exam: Present: atraumatic, normocephalic, normal inspection Eye exam: Present: normal appearance, PERRL, EOMI. Absent: scleral icterus, conjunctival injection, periorbital swelling ENT exam: Present: normal exam, normal oropharynx, mucous membranes moist Neck exam: Present: normal inspection, full ROM. Absent: tenderness, meningismus, lymphadenopathy Respiratory exam: Present: normal lung sounds bilaterally. Absent: respiratory distress, wheezes, rales, rhonchi, stridor Cardiovascular Exam: Present: regular rate, normal rhythm, normal heart sounds. Absent: systolic murmur, diastolic murmur, rubs, gallop, clicks Neurological exam: Present: alert, oriented X3, CN II-XII intact, reflexes normal. Absent: motor sensory deficit Skin exam: Present: warm, dry, intact, normal color. Absent: rash Course Vital Signs 06/22/20 06/22/20 11:31 11:41 Temperature 98.0 F Pulse Rate 72 Respiratory 18 18 Rate Blood Pressure 127/82 O2 Sat by Pulse 99 Oximetry Medical Decision Making - Medical Decision Making X-rays unremarkable,, Covid testing is negative. There is some suspicion the patient this positive as she has known close contact. Patient discharged in stable condition. - Lab Data Lab Results 06/22/20 Range/Units 11:50 Coronavirus (PCR) Not Detected (Not Detectd) Disposition Clinical Impression: Upper respiratory infection Disposition: HOME SELF-CARE Condition: Stable Instructions (If sedation given, give patient instructions): Upper Respiratory Infection (ED) Additional Instructions: Please return to the Emergency Department if symptoms worsen or any other concerns. Is patient prescribed a controlled substance at d/c from ED?: No Referrals: Nolan Reyes DO [Primary Care Provider] - 1-2 days Time of Disposition: 12:34
--- NOTE | 2020-06-22 12:26 | XR ---
EXAMINATION TYPE: XR chest 2V DATE OF EXAM: 06/22/2020 COMPARISON: NONE HISTORY: Cough, loss of taste and smell TECHNIQUE: Frontal and lateral views of the chest are obtained. FINDINGS: There is no focal air space opacity, pleural effusion, or pneumothorax seen. The cardiac silhouette size is within normal limits. The osseous structures are intact, there may be spinal cur vature patient rotation. Surgical clips are present in the upper abdomen. IMPRESSION: No acute cardiopulmonary process.
== END 2020-06-22 12:45 | disposition home or self-care (01) ==
LOC: EC 11:27
DX: J06.9 Acute upper respiratory infection, unspecified (principal); F17.200 Nicotine dependence, unspecified, uncomplicated; Z20.828 Contact with and (suspected) exposure to other viral communicable diseases; Z88.5 Allergy status to narcotic agent; Z88.0 Allergy status to penicillin
CPT/HCPCS: 71046; 87635; 99285

== ENCOUNTER 2020-07-21 22:23 | Emergency (ER) | payer OTHER ==
[2020-07-21 22:28] VITALS: BP 142/85; PULSE 82; RESP 18; TEMP 99.2
[2020-07-21] MEDS ORDERED: CLINDAMYCIN 150 MG CAP PO STA (23:07)
--- NOTE | 2020-07-21 23:09 | ED ---
General Adult HPI - General Chief complaint: Dental/Oral Stated complaint: Oral abcess Time Seen by Provider: 07/21/20 22:32 Source: patient Mode of arrival: ambulatory Limitations: no limitations - History of Present Illness Initial comments: 29-year-old female presents to the emergency department for a chief complaint of dental abscess. Patient has an abscess on the roof of her mouth. States it has been there for about 2 days. Patient states this has happened before and she needed it lanced. Patient denies any swelling of the throat. Patient denies fevers or chills. Denies neck stiffness.Patient has no other complaints at this time including shortness of breath, chest pain, abdominal pain, nausea or vomiting, headache, or visual changes. - Related Data Previous Rx's Medication Instructions Recorded Clindamycin [Cleocin] 450 mg PO Q8H 7 Days #63 cap 07/21/20 Allergies Allergy/AdvReac Type Severity Reaction Status Date / Time codeine Allergy Rash/Hives Verified 07/21/20 22:27 Penicillins Allergy Unknown Verified 07/21/20 22:27 Review of Systems ROS Statement: Those systems with pertinent positive or pertinent negative responses have been documented in the HPI. ROS Other: All systems not noted in ROS Statement are negative. Past Medical History Past Medical History: No Reported History History of Any Multi-Drug Resistant Organisms: None Reported Past Surgical History: Cholecystectomy, Tonsillectomy Past Psychological History: No Psychological Hx Reported Smoking Status: Current every day smoker Past Alcohol Use History: None Reported Past Drug Use History: Marijuana General Exam Limitations: no limitations General appearance: alert Head exam: Present: atraumatic, normocephalic Eye exam: Present: normal appearance, PERRL, EOMI. Absent: scleral icterus, conjunctival injection ENT exam: Present: normal exam, mucous membranes moist. Absent: normal oropharynx (moderate abscess noted to the roof of the mouth, left side), other (no facial edema) Neck exam: Present: normal inspection, full ROM. Absent: tenderness Respiratory exam: Present: normal lung sounds bilaterally. Absent: respiratory distress, wheezes Cardiovascular Exam: Present: regular rate, normal rhythm, normal heart sounds Course Vital Signs 07/21/20 22:24 Temperature 99.2 F Pulse Rate 82 Respiratory 18 Rate Blood Pressure 142/85 O2 Sat by Pulse 100 Oximetry Procedures - Incision & Drainage Consent Obtained: verbal consent Indication: abscess Site: oral Size (cm): 2 Scalpel Used: #11 I&D Drainage Obtained: Pus, Blood Patient Tolerated Procedure: well, no complications Medical Decision Making - Medical Decision Making Incision and drainage attempted. There is a small amount of purulent drainage. Patient will be started on clindamycin as she has a penicillin ALLERGY. She will follow-up with her dentist. She will return here for any worsening symptoms. Disposition Clinical Impression: Dental abscess Disposition: HOME SELF-CARE Condition: Good Instructions (If sedation given, give patient instructions): Dental Abscess (ED) Additional Instructions: Take antibiotic as directed. Follow-up with your dentist tomorrow morning. If you develop worsening symptoms or symptoms are not improving return to the emergency room. Prescriptions: Clindamycin [Cleocin] 450 mg PO Q8H 7 Days #63 cap Is patient prescribed a controlled substance at d/c from ED?: No Referrals: Nolan Reyes DO [Primary Care Provider] - 1-2 days Time of Disposition: 23:08
== END 2020-07-21 23:32 | disposition home or self-care (01) ==
LOC: EC 22:23
DX: K04.7 Periapical abscess without sinus (principal); F17.200 Nicotine dependence, unspecified, uncomplicated; Z88.0 Allergy status to penicillin; Z88.5 Allergy status to narcotic agent
CPT/HCPCS: 41800; 99282

== ENCOUNTER 2020-07-22 11:54 | Observation (INO) | payer OTHER ==
[2020-07-22] MEDS ORDERED: CLINDAMYCIN 600 MG in DEXTROSE 5% IN WATER 50 ML IVPB STA ×2 (12:30)
[2020-07-22 12:57] LABS: Basophils # (A) 0.1 k/uL (0-0.2); Basophils % (A) 0 %; Eosinophils # (A) 0.2 k/uL (0-0.7); Eosinophils % (A) 1 %; HCT 43.2 % (34.0-46.0); HGB 14.9 gm/dL (11.4-16.0); Lymphocytes # (A) 1.9 k/uL (1.0-4.8); Lymphocytes % (A) 13 %; MCH 32.3 pg (25.0-35.0); MCHC 34.5 g/dL (31.0-37.0); MCV 93.7 fL (80.0-100.0); Mean Platelet Volume 7.2; Monocytes # (A) 0.7 k/uL (0-1.0); Monocytes % (A) 5 %; Neutrophils # (A) 11.1 k/uL (1.3-7.7); Neutrophils % (A) 80 %; Platelet Count 307 k/uL (150-450); RBC 4.61 m/uL (3.80-5.40); RDW 12.5 % (11.5-15.5); WBC 13.9 k/uL (3.8-10.6)
[2020-07-22 13:09] LABS: ALT 16 U/L (4-34); AST 18 U/L (14-36); African American GFR (CKD) >90 (>60 ml/min/1.73 sqM); Albumin 4.6 g/dL (3.5-5.0); Alkaline Phosphatase 83 U/L (38-126); Anion Gap 9 mmol/L; Blood Urea Nitrogen 7 mg/dL (7-17); Calcium 9.7 mg/dL (8.4-10.2); Carbon Dioxide 25 mmol/L (22-30); Chloride 104 mmol/L (98-107); Glucose 91 mg/dL (74-99); Non-African American GFR(CKD) >90 (>60 ml/min/1.73 sqM); Potassium 4.5 mmol/L (3.5-5.1); Sodium 138 mmol/L (137-145); Total Bilirubin 0.5 mg/dL (0.2-1.3)
--- NOTE | 2020-07-22 13:18 | CT ---
EXAMINATION TYPE: CT soft tissue neck w con DATE OF EXAM: 07/22/2020 1:06 PM COMPARISON: None HISTORY: Sore throat, uvula enlarged CT DLP: 411.3 mGycm Automated exposure control for dose reduction was used. CONTRAST: CT scan of the neck is performed following with IV Contrast, patient injected with 100 mL of Isovue 3 00. Axial images are obtained, coronal and sagittal reformatted images are reviewed. FINDINGS: Epiglottis shows a normal appearance in profile. Airway: No gross abnormality seen. Parotid/submandibular glands: No gross abnormality seen. Carotid/Vascular Structures: Patent, no abnormal enhancement Osseous Structures: Normal for age Other: Helical periosteal thickening present in the left maxillary sinus, there is some thickened sof t tissue present. Jugulodigastric nodes are at the upper limit of normal for size, scattered shotty n odes are present within the bilateral cervical chains which are not enlarged. IMPRESSION: CT scan of the neck is within normal limits. Sinus disease. Follow-up as indicated.
[2020-07-22] MEDS ORDERED: BENZOCAINE SPRAY 1 CAN MUCOUS MEM STA (13:55)
[2020-07-22] MEDS ORDERED: LORazepam 2 MG/ML INJ IV STA (14:27)
--- NOTE | 2020-07-22 14:28 | ED ---
Recheck HPI - General Source: patient Mode of arrival: ambulatory Limitations: no limitations <Muriel Vazquez - Last Filed: 07/22/20 18:35> <Rasheeda Flores - Last Filed: 07/27/20 22:16> - General Chief Complaint: Recheck/Abnormal Lab/Rx Stated Complaint: abscess in mouth-revisit Time Seen by Provider: 07/22/20 12:13 - History of Present Illness Initial Comments: pleasant 29 yo female presenting for left roof of her mouth abscess. Patient states she was seen the day prior. Antibiotics and attempted drainage of the abscess. She is told to got worse to come back. Patient states that she now feels like it's traveling further the back of her mouth and having difficulty swallowing breathing. Patient states that she's becoming very anxious about this. Patient denies fevers chills or general malaise. She denies any nausea vomiting, drooling, tripoding, voice changes. Patient denies swelling of the neck. Patient has no additional complaints. upn arrival she appears afebrile, in no distress. (Muriel Vazquez) - Related Data Home Medications Medication Instructions Recorded Confirmed Amoxicillin/Potassium Clav 1 tab PO Q12HR 07/24/20 07/24/20 [Augmentin 875-125 Tablet] Previous Rx's Medication Instructions Recorded Clindamycin HCl 300 mg PO Q8H 7 Days #21 cap 07/24/20 Allergies Allergy/AdvReac Type Severity Reaction Status Date / Time codeine Allergy Unknown Verified 07/24/20 12:07 Childhood Penicillins Allergy Unknown Verified 07/24/20 12:07 Childhood Review of Systems ROS Other: All systems not noted in ROS Statement are negative. <Muriel Vazquez - Last Filed: 07/22/20 18:35> ROS Other: All systems not noted in ROS Statement are negative. <Rasheeda Flores - Last Filed: 07/27/20 22:16> ROS Statement: Those systems with pertinent positive or pertinent negative responses have been documented in the HPI. Past Medical History Past Medical History: No Reported History History of Any Multi-Drug Resistant Organisms: None Reported Past Surgical History: Cholecystectomy, Tonsillectomy Past Psychological History: No Psychological Hx Reported Smoking Status: Current every day smoker Past Alcohol Use History: None Reported Past Drug Use History: Marijuana <Muriel Vazquez - Last Filed: 07/22/20 18:35> General Exam Limitations: no limitations <Muriel Vazquez - Last Filed: 07/22/20 18:35> - General Exam Comments Initial Comments: General: The patient is awake and alert, in no distress Eye: Pupils are equal, round and reactive to light, extra-ocular movements are intact. No nystagmus. There is normal conjunctiva bilaterally. No signs of icterus. Ears, nose, mouth and throat: There are moist mucous membranes and no oral lesions. no tripoding no drooling. tolerating oral secretions. patient has large abscess of hard/soft palate left side. Neck: The neck is supple, there is no tenderness or JVD. no swelling of the neck below the tongue or below the angle of the mandible Cardiovascular: There is a regular rate and rhythm. No murmur, rub or gallop is appreciated. Respiratory: Lungs are clear to auscultation, respirations are non-labored, breath sounds are equal. No wheezes, stridor, rales, or rhonchi. Gastrointestinal: Soft, non-distended, non-tender abdomen without masses or organomegaly noted. There is no rebound or guarding present. Musculoskeletal: Normal ROM, no tenderness. Strength 5/5. Sensation intact. Pulses equal bilaterally 2+. Neurological: A&O x 3. CN II-XII intact, There are no obvious motor or sensory deficits. Coordination appears grossly intact. Speech is normal. Skin: Skin is warm and dry and no rashes or lesions are noted. Psychiatric: Cooperative, appropriate mood & affect, normal judgment. (Muriel Vazquez) Course Vital Signs 07/22/20 07/22/20 07/22/20 11:59 13:32 16:30 Temperature 98.4 F Pulse Rate 100 76 86 Pulse Rate [ Left] Respiratory 16 18 18 Rate Blood Pressure 122/76 111/55 106/69 Blood Pressure [Left Arm] O2 Sat by Pulse 98 99 100 Oximetry 07/22/20 16:42 Temperature 98.2 F Pulse Rate Pulse Rate [ 85 Left] Respiratory 16 Rate Blood Pressure Blood Pressure 105/70 [Left Arm] O2 Sat by Pulse 96 Oximetry Medical Decision Making - Lab Data Result diagrams: 07/22/20 12:38 07/22/20 12:38 <Muriel Vazquez - Last Filed: 07/22/20 18:35> - Lab Data Result diagrams: 07/22/20 12:38 07/22/20 12:38 <Rasheeda Flores - Last Filed: 07/27/20 22:16> - Medical Decision Making cytosis. No fevers. Abscess had successful needle aspiration, with unsuccessful I&D attempt. pt tolerated procedure well. as complete drainage no successful after two days of attempts. pt will be admitted for IV antibtioics and maxillofacial consultation. Dr. Paz accepted. Pt agreeable/ Dr Flores agreeable to care plan. (Muriel Vazquez) I was available for consultation in the emergency department. The history and physical exam were done by the midlevel provider. I was consulted for this patients care. I reviewed the case with the midlevel provider and based on their presentation of the patient, I agree with the assessment, medical decision making and plan of care as documented. Chart was dictated using [employer] dictation software. Attempts were made to correct any dictation errors however some typographical errors may persist. Patient was seen during a national state of emergency due to the Covid-19 terry silvana. (Rasheeda Flores) - Lab Data Lab Results 07/22/20 07/22/20 Range/Units 12:38 12:38 WBC 13.9 H (3.8-10.6) k/uL RBC 4.61 (3.80-5.40) m/uL Hgb 14.9 (11.4-16.0) gm/dL Hct 43.2 (34.0-46.0) % MCV 93.7 (80.0-100.0) fL MCH 32.3 (25.0-35.0) pg MCHC 34.5 (31.0-37.0) g/dL RDW 12.5 (11.5-15.5) % Plt Count 307 (150-450) k/uL MPV 7.2 Neutrophils % 80 % Lymphocytes % 13 % Monocytes % 5 % Eosinophils % 1 % Basophils % 0 % Neutrophils # 11.1 H (1.3-7.7) k/uL Lymphocytes # 1.9 (1.0-4.8) k/uL Monocytes # 0.7 (0-1.0) k/uL Eosinophils # 0.2 (0-0.7) k/uL Basophils # 0.1 (0-0.2) k/uL Sodium 138 (137-145) mmol/L Potassium 4.5 (3.5-5.1) mmol/L Chloride 104 (98-107) mmol/L Carbon Dioxide 25 (22-30) mmol/L Anion Gap 9 mmol/L BUN 7 (7-17) mg/dL Creatinine 0.60 (0.52-1.04) mg/dL Est GFR (CKD-EPI)AfAm >90 (>60 ml/min/1.73 sqM) Est GFR (CKD-EPI)NonAf >90 (>60 ml/min/1.73 sqM) Glucose 91 (74-99) mg/dL Calcium 9.7 (8.4-10.2) mg/dL Total Bilirubin 0.5 (0.2-1.3) mg/dL AST 18 (14-36) U/L ALT 16 (4-34) U/L Alkaline Phosphatase 83 (38-126) U/L Total Protein 8.0 (6.3-8.2) g/dL Albumin 4.6 (3.5-5.0) g/dL Disposition Is patient prescribed a controlled substance at d/c from ED?: No Time of Disposition: 14:28 Decision to Admit Reason: Admit from EC Decision Date: 07/22/20 Decision Time: 14:28 <Muriel Vazquez - Last Filed: 07/22/20 18:35> <Rasheeda Flores - Last Filed: 07/27/20 22:16> Clinical Impression: Hard palate abscess Disposition: ADMITTED IP TO THIS HOSP Condition: Stable
[2020-07-22] MEDS ORDERED: ONDANSETRON 4 MG/2 ML VIAL IVP PRN (14:48)
[2020-07-22] MEDS ORDERED: NALOXONE 0.4 MG/ML 1 ML VIAL IV PRN (14:48)
[2020-07-22] MEDS ORDERED: LORazepam 0.5 MG TAB PO PRN (14:48)
[2020-07-22] MEDS ORDERED: KETOROLAC 15 MG/ML 1 ML VIAL IVP STA (16:36)
[2020-07-22 17:10] VITALS: RESP 16
--- NOTE | 2020-07-22 17:58 | P.HPIM ---
History of Present Illness H&P Date: 07/22/20 This is a 29-year-old pleasant lady patient of Dr. Reyes. She has underlying history of upper palate abscess, was in the emergency room on 07/21/2020 this was drained, and was given an antibiotic. She presentation of the roof of her mouth being swollen pussy, sore, for the past 2 days. She has prior history of this in the past for which it was lanced, patient denies any fever no chills, no neck stiffness, no shortness of breath no chest pain no dislocation no headache. she was discharged emergency room on 07/21/2020 with Cleocin for 50 mg every 3 times a day 7 days, now she comes into the emergency room with increasing pain and discomfort, we'll double basic count is 13.9, and was subsequently admitted, with referral to Dr. Gonzales, orofacial surgeon. Patient is started on IV Unasyn. Coronavirus not detected. On PCR liver function tests normal neck CT, sinus disease, involving the left maxillary sinus, with thickened soft tissue present, lymph nodes are shotty however no cervical lymphadenopathy enlargement noted Review of Systems Constitutional: Reports as per HPI, Denies anorexia, Denies chills, Denies chronic headaches, Denies chronic pain, Denies daytime sleepiness, Denies fatigue, Denies fever, Denies lethargy, Denies malaise, Denies night sweats, Denies poor appetite, Denies sweats, Denies weakness, Denies weight gain, Denies weight loss Ears, nose, mouth and throat: Reports as per HPI, Reports ant. neck pain Cardiovascular: Reports as per HPI, Denies chest pain, Denies claudication, Denies decreased exercise tolerance, Denies dyspnea on exertion, Denies edema, D enies high blood pressure, Denies irregular heart beat, Denies leg edema, Denies lightheadedness, Denies orthopnea, Denies palpitations, Denies paroxysmal nocturnal dyspnea, Denies phlebitis, Denies rapid heart beat, Denies shortness of breath, Denies syncope Respiratory: Reports as per HPI Gastrointestinal: Reports as per HPI, Denies abdominal pain, Denies belching, Denies bloating, Denies BRBPR, Denies change in bowel habits, Denies coffee grou nd emesis, Denies constipation, Denies diarrhea, Denies dyspepsia, Denies early satiety, Denies excessive gas, Denies heartburn, Denies hematemesis, Denies hematochezia, Denies indigestion, Denies jaundice, Denies lactose intolerance, Denies loss of appetite, Denies melena, Denies nausea, Denies vomiting Genitourinary: Denies as per HPI, Denies abnormal vaginal bleeding, Denies decreased libido, Denies difficulty conceiving, Denies difficulty voiding, Denies dysmenorrhea, Denies dyspareunia, Denies dysuria, Denies flank pain, Denies genital sores, Denies hematuria, Denies hot flashes, Denies incomplete emptying, Denies kidney stones, Denies menorrhagia, Denies mixed incontinence, Denies nocturia, Denies pelvic pain, Denies post void dribbling, Denies , Denies prolapse symptoms, Denies stress incontinence, Denies urge incontinence, Denies urgency, Denies urinary frequency, Denies vaginal discharge, Denies vaginal dryness, Denies vaginal itching, Denies vaginal odor Past Medical History Past Medical History: No Reported History History of Any Multi-Drug Resistant Organisms: None Reported Past Surgical History: Cholecystectomy, Tonsillectomy Past Psychological History: No Psychological Hx Reported Smoking Status: Current every day smoker Past Alcohol Use History: None Reported Past Drug Use History: Marijuana Medications and Allergies Home Medications Medication Instructions Recorded Confirmed Type No Known Home Medications 07/22/20 07/22/20 History Allergies Allergy/AdvReac Type Severity Reaction Status Date / Time codeine Allergy Unknown Verified 07/22/20 13:42 Childhood Penicillins Allergy Unknown Verified 07/22/20 13:42 Childhood Physical Exam Vitals: Vital Signs Temp Pulse Pulse Resp BP BP Pulse Ox 07/22/20 16:42 98.2 F 85 16 105/70 96 07/22/20 16:30 86 18 106/69 100 07/22/20 13:32 76 18 111/55 99 07/22/20 11:59 98.4 F 100 16 122/76 98 Intake and Output 07/22/20 07/22/20 07/22/20 06:59 14:59 22:59 Other: Weight 93.9 kg 93.9 kg - Constitutional General appearance: cooperative, no acute distress - EENT Eyes: EOMI, PERRLA, dentition normal ENT: NA/AT, other (Upper palate, with pharyngeal erythema, induration, swelling, drainage, a pocket of small abscess noted,) - Neck Neck: normal ROM - Respiratory Respiratory: bilateral: CTA, negative: diminished, dullness - Cardiovascular Rhythm: regular Heart sounds: normal: S1 Abnormal Heart Sounds: systolic murmur, no diastolic murmur, no rub, no S3 Gallop, no S4 Gallop, no click, no other - Gastrointestinal General gastrointestinal: normal bowel sounds, soft - Integumentary Integumentary: decreased turgor, normal - Neurologic Neurologic: CNII-XII intact Results CBC & Chem 7: 07/22/20 12:38 07/22/20 12:38 Labs: Abnormal Lab Results - Last 24 Hours (Table) 07/22/20 Range/Units 12:38 WBC 13.9 H (3.8-10.6) k/uL Neutrophils # 11.1 H (1.3-7.7) k/uL Laboratory Results WBC 13.9 k/uL (3.8-10.6) H 07/22/20 12:38 RBC 4.61 m/uL (3.80-5.40) 07/22/20 12:38 Hgb 14.9 gm/dL (11.4-16.0) 07/22/20 12:38 Hct 43.2 % (34.0-46.0) 07/22/20 12:38 MCV 93.7 fL (80.0-100.0) 07/22/20 12:38 MCH 32.3 pg (25.0-35.0) 07/22/20 12:38 MCHC 34.5 g/dL (31.0-37.0) 07/22/20 12:38 RDW 12.5 % (11.5-15.5) 07/22/20 12:38 Plt Count 307 k/uL (150-450) 07/22/20 12:38 MPV 7.2 07/22/20 12:38 Neutrophils % 80 % 07/22/20 12:38 Lymphocytes % 13 % 07/22/20 12:38 Monocytes % 5 % 07/22/20 12:38 Eosinophils % 1 % 07/22/20 12:38 Basophils % 0 % 07/22/20 12:38 Neutrophils # 11.1 k/uL (1.3-7.7) H 07/22/20 12:38 Lymphocytes # 1.9 k/uL (1.0-4.8) 07/22/20 12:38 Monocytes # 0.7 k/uL (0-1.0) 07/22/20 12:38 Eosinophils # 0.2 k/uL (0-0.7) 07/22/20 12:38 Basophils # 0.1 k/uL (0-0.2) 07/22/20 12:38 Sodium 138 mmol/L (137-145) 07/22/20 12:38 Potassium 4.5 mmol/L (3.5-5.1) 07/22/20 12:38 Chloride 104 mmol/L (98-107) 07/22/20 12:38 Carbon Dioxide 25 mmol/L (22-30) 07/22/20 12:38 Anion Gap 9 mmol/L 07/22/20 12:38 BUN 7 mg/dL (7-17) 07/22/20 12:38 Creatinine 0.60 mg/dL (0.52-1.04) 07/22/20 12:38 Est GFR (CKD-EPI)AfAm >90 (>60 ml/min/1.73 sqM) 07/22/20 12:38 Est GFR (CKD-EPI)NonAf >90 (>60 ml/min/1.73 sqM) 07/22/20 12:38 Glucose 91 mg/dL (74-99) 07/22/20 12:38 Calcium 9.7 mg/dL (8.4-10.2) 07/22/20 12:38 Total Bilirubin 0.5 mg/dL (0.2-1.3) 07/22/20 12:38 AST 18 U/L (14-36) 07/22/20 12:38 ALT 16 U/L (4-34) 07/22/20 12:38 Alkaline Phosphatase 83 U/L (38-126) 07/22/20 12:38 Total Protein 8.0 g/dL (6.3-8.2) 07/22/20 12:38 Albumin 4.6 g/dL (3.5-5.0) 07/22/20 12:38 Coronavirus (PCR) Not Detected (Not Detectd) 07/22/20 14:43 Thrombosis Risk Factor Assmnt - DVT/VTE Prophylaxis DVT/VTE Prophylaxis: Mechanical Prophylaxis ordered, Low risk, early ambulation encouraged - Choose All That Apply Any of the Below Risk Factors Present?: No Other Risk Factors: No Thrombosis Risk Factor Assessment Level: Very Low Risk Assessment and Plan Plan: 1. Abscess of the upper palate, with I&D performed emergency room 07/21/2020, significant drainage noted, consult with Dr. Gonzales, oral facial surgeon, antibiotic would be in the form of Unasyn, IV, pain control 2. Tobacco use offered nicotine patches 3. Substance use in the form of marijuana 5. Patient will be made observation for now, most likely to be discharged in the next 2448 hrs., pending recommendation from orofacial surgeon 5. SIRS, with leukocytosis,, would monitor for cavernous sinus thrombosis, no current symptoms neurologically. GI prophylaxis with Pepcid DVT prophylaxis with early ambulation
[2020-07-22] MEDS ORDERED: KETOROLAC 15 MG/ML 1 ML VIAL IVP PRN (19:31)
--- NOTE | 2020-07-22 20:35 | P.GSCN ---
History of Present Illness Consult date: 07/22/20 Reason for Consult: palatal Abcess Requesting physician: Chinyere Paz History of present illness: pleasant lady with Palatal swelling, went to ER yesterday and received PO abx and Intra oral drainage. no resolution. returned to ER and Admitted. reports history of difficult swallowing but not having trouble now. Review of Systems - Constitutional Reports as per HPI - EENT EENT Comment(s): denies trouble swallowing and no trouble breathing Ears, nose, mouth and throat: Reports dental pain Past Medical History Past Medical History: No Reported History History of Any Multi-Drug Resistant Organisms: None Reported Past Surgical History: Cholecystectomy, Tonsillectomy Past Psychological History: No Psychological Hx Reported Smoking Status: Current every day smoker Past Alcohol Use History: None Reported Past Drug Use History: Marijuana Medications and Allergies Home Medications Medication Instructions Recorded Confirmed Type No Known Home Medications 07/22/20 07/22/20 History Allergies Allergy/AdvReac Type Severity Reaction Status Date / Time codeine Allergy Unknown Verified 07/22/20 13:42 Childhood Penicillins Allergy Unknown Verified 07/22/20 13:42 Childhood Surgical - Exam Vital Signs Temp Pulse Resp BP Pulse Ox 98.4 F 100 16 122/76 98 07/22/20 11:59 07/22/20 11:59 07/22/20 11:59 07/22/20 11:59 07/22/20 11:59 normal mouth opening with multiple deeply decayed teeth. 1cm swelling of hard palate adjacent to tooth 14. no other swelling noted. pat will need extraction of tooth. Results - Labs 07/22/20 12:38 07/22/20 12:38 Abnormal Lab Results - Last 24 Hours (Table) 07/22/20 Range/Units 12:38 WBC 13.9 H (3.8-10.6) k/uL Neutrophils # 11.1 H (1.3-7.7) k/uL Diabetes panel 07/22/20 Range/Units 12:38 Sodium 138 (137-145) mmol/L Potassium 4.5 (3.5-5.1) mmol/L Chloride 104 (98-107) mmol/L Carbon Dioxide 25 (22-30) mmol/L BUN 7 (7-17) mg/dL Creatinine 0.60 (0.52-1.04) mg/dL Glucose 91 (74-99) mg/dL Calcium 9.7 (8.4-10.2) mg/dL AST 18 (14-36) U/L ALT 16 (4-34) U/L Alkaline Phosphatase 83 (38-126) U/L Total Protein 8.0 (6.3-8.2) g/dL Albumin 4.6 (3.5-5.0) g/dL Calcium panel 07/22/20 Range/Units 12:38 Calcium 9.7 (8.4-10.2) mg/dL Albumin 4.6 (3.5-5.0) g/dL Pituitary panel 07/22/20 Range/Units 12:38 Sodium 138 (137-145) mmol/L Potassium 4.5 (3.5-5.1) mmol/L Chloride 104 (98-107) mmol/L Carbon Dioxide 25 (22-30) mmol/L BUN 7 (7-17) mg/dL Creatinine 0.60 (0.52-1.04) mg/dL Glucose 91 (74-99) mg/dL Calcium 9.7 (8.4-10.2) mg/dL Adrenal panel 07/22/20 Range/Units 12:38 Sodium 138 (137-145) mmol/L Potassium 4.5 (3.5-5.1) mmol/L Chloride 104 (98-107) mmol/L Carbon Dioxide 25 (22-30) mmol/L BUN 7 (7-17) mg/dL Creatinine 0.60 (0.52-1.04) mg/dL Glucose 91 (74-99) mg/dL Calcium 9.7 (8.4-10.2) mg/dL Total Bilirubin 0.5 (0.2-1.3) mg/dL AST 18 (14-36) U/L ALT 16 (4-34) U/L Alkaline Phosphatase 83 (38-126) U/L Total Protein 8.0 (6.3-8.2) g/dL Albumin 4.6 (3.5-5.0) g/dL Assessment and Plan Assessment: dental abscess from tooth 14. no airway impingement. nurse stated pt to start on Unasyn soon and patient denied any reaction to Penicillin in past in my presence. this would be good empiric choice. discussed with patient that I could pull her tooth in my office tomorrow over lunch and she is to not eat or drink anything after midnight and bring her girlfriend to drive her home. she will also bring all her insurance information but i informed her that we might not participate with her insurance. she was ok with this plan.
[2020-07-23] MEDS: AMPICILLIN-SULBACTAM 1.5 GM in SODIUM CHLORIDE 0.9% 50 ML IVPB SCH ×2 (00:03→07:55)
[2020-07-23 07:10] VITALS: BP 107/63; PULSE 68; TEMP 97.8
--- NOTE | 2020-07-23 10:12 | P.DS ---
Providers Date of admission: 07/22/20 14:36 Expected date of discharge: 07/23/20 Attending physician: Chinyere Paz Consults: 07/22/20 14:45 Consult Physician Urgent Consulting Provider: Marshall Gonzales Consult Reason/Comments: oral abscess Do you want consulting provider notified?: Yes Primary care physician: Nolan Course: HISTORY OF PRESENT ILLNESS This is a 29-year-old pleasant lady patient of Dr. Reyes. She has underlying history of upper palate abscess, was in the emergency room on 07/21/2020 this was drained, and was given an antibiotic. She presentation of the roof of her mouth being swollen pussy, sore, for the past 2 days. She has prior history of this in the past for which it was lanced, patient denies any fever no chills, no neck stiffness, no shortness of breath no chest pain no dislocation no headache. she was discharged emergency room on 07/21/2020 with Cleocin for 50 mg every 3 times a day 7 days, now she comes into the emergency room with increasing pain and discomfort, we'll double basic count is 13.9, and was subsequently admitted, with referral to Dr. Gonzales, orofacial surgeon. Patien t is started on IV Unasyn. Coronavirus not detected. On PCR liver function tests normal neck CT, sinus disease, involving the left maxillary sinus, with thickened soft tissue present, lymph nodes are shotty however no cervical lymphadenopathy enlargement noted 07/23: Patient has been afebrile, heart rate 68, blood pressure 107/63, pulse ox 93% on room air. Patient has been seen by Dr. Gonzales and plan is for patient to go to his office and have extraction of a tooth. Patient needs to be there by noon today. We will provide prescription for Augmentin and patient will be discharged today in stable condition. ASSESSMENT AND PLAN 1. Abscess of the upper palate, with I&D performed emergency room 07/21/2020 2. Tobacco use 3. Substance use in the form of marijuana 4. SIRS, with leukocytosis DISCHARGE PLAN Home. Impression and plan of care have been directed as dictated by the signing physician. Neida Cerda nurse practitioner acting as scribe for signing physician. Patient Condition at Discharge: Stable Plan - Discharge Summary Discharge Rx Participant: No New Discharge Prescriptions: No Action Amoxicillin/Potassium Clav [Augmentin 476-125 Tablet] 1 tab PO Q12HR Clindamycin HCl 300 mg PO Q8H 7 Days #21 cap Discharge Medication List Amoxicillin/Potassium Clav [Augmentin 875-125 Tablet] 1 tab PO Q12HR 07/24/20 [History] Clindamycin HCl 300 mg PO Q8H 7 Days #21 cap 07/24/20 [Rx] Follow up Appointment(s)/Referral(s): Marshall Gonzales DDS [STAFF PHYSICIAN] - 1-2 Days (today ) Nolan Reyes DO [Primary Care Provider] - 08/06/20 10:15 am Patient Instructions/Handouts: Dental Abscess (GEN) Discharge Disposition: HOME SELF-CARE
== END 2020-07-23 10:31 | disposition home or self-care (01) ==
LOC: EC 11:54 → 6NMEDSUR 14:36
PROVIDERS: ADMIT Family Medicine; ATTEND Family Medicine
DX: M27.2 Inflammatory conditions of jaws (principal); K04.7 Periapical abscess without sinus; K02.9 Dental caries, unspecified; F17.200 Nicotine dependence, unspecified, uncomplicated; Z20.822 Contact with and (suspected) exposure to COVID-19; Z86.19 Personal history of other infectious and parasitic diseases; Z88.5 Allergy status to narcotic agent; Z90.49 Acquired absence of other specified parts of digestive tract; Z90.89 Acquired absence of other organs
CPT/HCPCS: 96366; 96367; 96365; 96375; 99284; 36415; 80053; 85025; 87635; 70491; G0378 ×2; J2060; J0295; J1885; Q9967

== ENCOUNTER 2020-07-24 10:33 | Emergency (ER) | payer OTHER ==
[2020-07-24 10:46] VITALS: RESP 18
[2020-07-24] MEDS ORDERED: SODIUM CHLORIDE 0.9% 1,000 ML IV STA (11:16)
[2020-07-24 11:38] LABS: Basophils # (A) 0.1 k/uL (0-0.2); Basophils % (A) 1 %; Eosinophils # (A) 0.2 k/uL (0-0.7); Eosinophils % (A) 2 %; HCT 45.9 % (34.0-46.0); HGB 15.7 gm/dL (11.4-16.0); Lymphocytes # (A) 0.9 k/uL (1.0-4.8); Lymphocytes % (A) 8 %; MCH 31.8 pg (25.0-35.0); MCHC 34.1 g/dL (31.0-37.0); MCV 93.4 fL (80.0-100.0); Monocytes # (A) 0.4 k/uL (0-1.0); Monocytes % (A) 4 %; Neutrophils # (A) 9.4 k/uL (1.3-7.7); Neutrophils % (A) 85 %; Platelet Count 313 k/uL (150-450); RBC 4.92 m/uL (3.80-5.40); RDW 12.3 % (11.5-15.5); WBC 11.1 k/uL (3.8-10.6)
[2020-07-24 11:47] LABS: ALT 22 U/L (4-34); AST 26 U/L (14-36); African American GFR (CKD) >90 (>60 ml/min/1.73 sqM); Albumin 4.6 g/dL (3.5-5.0); Alkaline Phosphatase 83 U/L (38-126); Anion Gap 12 mmol/L; Blood Urea Nitrogen 13 mg/dL (7-17); Carbon Dioxide 24 mmol/L (22-30); Chloride 104 mmol/L (98-107); Glucose 101 mg/dL (74-99); Non-African American GFR(CKD) >90 (>60 ml/min/1.73 sqM); Potassium 4.5 mmol/L (3.5-5.1); Sodium 140 mmol/L (137-145); Total Bilirubin 0.4 mg/dL (0.2-1.3); Total Protein 8.3 g/dL (6.3-8.2)
--- NOTE | 2020-07-24 11:47 | ED ---
General Adult HPI - General Chief complaint: Syncope Stated complaint: Syncope Time Seen by Provider: 07/24/20 10:39 Source: patient, EMS Mode of arrival: EMS Limitations: no limitations - History of Present Illness Initial comments: Patient is a 29-year-old female presenting to the emergency department via EMS after having a syncopal event at home. She states she started taking a new anabiotic, Augmentin, yesterday for a dental abscess. Patient states she took it this morning, was at the table smoking marijuana with her mother when she became nauseous, dizzy and then had a syncopal event. Per EMS, mother states she did not hit her head. The patient remembers is being in the back of the ambulance. She states at this time she does feel fatigued, slightly nauseous. She denies any pain anywhere, no chest pain or shortness of breath. She denies any abdominal pain, no pain in her extremities. She denies any vomiting, no fever or chills. She states she does not think she has taken Augmentin in the past. She did not eat anything this morning yet. She denies being . She states this has never happened before. She has no further complaints at this time. Upon arrival to the ER, her vital signs are stable. - Related Data Home Medications Medication Instructions Recorded Confirmed Amoxicillin/Potassium Clav 1 tab PO Q12HR 07/24/20 07/24/20 [Augmentin 875-125 Tablet] Previous Rx's Medication Instructions Recorded Clindamycin HCl 300 mg PO Q8H 7 Days #21 cap 07/24/20 Allergies Allergy/AdvReac Type Severity Reaction Status Date / Time codeine Allergy Unknown Verified 07/24/20 12:07 Childhood Penicillins Allergy Unknown Verified 07/24/20 12:07 Childhood Review of Systems ROS Statement: Those systems with pertinent positive or pertinent negative responses have been documented in the HPI. ROS Other: All systems not noted in ROS Statement are negative. Past Medical History Past Medical History: No Reported History History of Any Multi-Drug Resistant Organisms: None Reported Past Surgical History: Cholecystectomy, Tonsillectomy Past Psychological History: No Psychological Hx Reported Smoking Status: Current every day smoker Past Alcohol Use History: None Reported Past Drug Use History: Marijuana General Exam - General Exam Comments Initial Comments: GENERAL: Patient is well-developed and well-nourished. Patient is nontoxic and in no acute distress. HEAD: Atraumatic, normocephalic. EYES: Pupils equal round and reactive to light, extraocular movements intact, sclera anicteric, conjunctiva are normal. Eyelids were unremarkable. ENT: TMs normal, nares patent, oropharynx clear without exudates. Moist mucous membranes. NECK: Normal range of motion, supple without lymphadenopathy or JVD. LUNGS: Unlabored respirations. Breath sounds clear to auscultation bilaterally and equal. No wheezes rales or rhonchi. HEART: Regular rate and rhythm without murmurs, rubs or gallops. ABDOMEN: Soft, nontender, normoactive bowel sounds. No guarding, no rebound. No masses appreciated. : Deferred MUSCULOSKELETAL: Normal extremities with adequate strength and normal range of motion, no pitting or edema. No clubbing or cyanosis. NEUROLOGICAL: Patient is alert and oriented x 3. Motor and sensory are also intact. Cranial nerves II through XII grossly intact. Symmetrical smile. Normal speech, normal gait. PSYCH: Normal mood, normal affect. SKIN: Warm, Dry, normal turgor, no rashes or lesions noted. Limitations: no limitations Course Vital Signs 07/24/20 07/24/20 07/24/20 10:36 11:15 12:48 Temperature 97.6 F 98.5 F Pulse Rate 104 H 90 77 Respiratory 18 18 18 Rate Blood Pressure 106/64 104/76 108/63 O2 Sat by Pulse 96 98 97 Oximetry EKG Findings - EKG Comments: EKG Findings:: Normal sinus rhythm, left axis deviation, no signs of an acute process. Ventricular rate 94, NC interval 148, QT 350. Medical Decision Making - Medical Decision Making Patient is a 29-year-old female here after having a syncopal event at home this morning. Patient's vital signs are stable, her EKG shows no acute process. Chest x-ray is normal, lab work is also unremarkable. Troponin is normal. Patient's urine does show evidence for UTI. Urine culture is pending. She r eceived 1 L fluids and is feeling improvement. I discussed with patient that her symptoms could be related to a vasovagal episode, UTI or possibly dehydration with taking antibiotics. We will switch her antibiotic to clindamycin to cover for both dental and urine. Follow-up with her doctor next week. Return parameters were discussed with the patient and she verbalized understanding. She is stable for discharge and she is in agreement with this plan of care. Case discussed Dr. Francisco. - Lab Data Result diagrams: 07/24/20 11:29 07/24/20 11:29 Lab Results 07/24/20 07/24/20 07/24/20 Range/Units 11:29 11:29 11:29 WBC 11.1 H (3.8-10.6) k/uL RBC 4.92 (3.80-5.40) m/uL Hgb 15.7 (11.4-16.0) gm/dL Hct 45.9 (34.0-46.0) % MCV 93.4 (80.0-100.0) fL MCH 31.8 (25.0-35.0) pg MCHC 34.1 (31.0-37.0) g/dL RDW 12.3 (11.5-15.5) % Plt Count 313 (150-450) k/uL MPV 7.0 Neutrophils % 85 % Lymphocytes % 8 % Monocytes % 4 % Eosinophils % 2 % Basophils % 1 % Neutrophils # 9.4 H (1.3-7.7) k/uL Lymphocytes # 0.9 L (1.0-4.8) k/uL Monocytes # 0.4 (0-1.0) k/uL Eosinophils # 0.2 (0-0.7) k/uL Basophils # 0.1 (0-0.2) k/uL PT 9.6 (9.0-12.0) sec INR 0.9 (<1.2) APTT 21.9 L (22.0-30.0) sec Sodium (137-145) mmol/L Potassium (3.5-5.1) mmol/L Chloride (98-107) mmol/L Carbon Dioxide (22-30) mmol/L Anion Gap mmol/L BUN (7-17) mg/dL Creatinine (0.52-1.04) mg/dL Est GFR (CKD-EPI)AfAm (>60 ml/min/1.73 sqM) Est GFR (CKD-EPI)NonAf (>60 ml/min/1.73 sqM) Glucose (74-99) mg/dL Calcium (8.4-10.2) mg/dL Total Bilirubin (0.2-1.3) mg/dL AST (14-36) U/L ALT (4-34) U/L Alkaline Phosphatase (38-126) U/L Troponin I (0.000-0.034) ng/mL Total Protein (6.3-8.2) g/dL Albumin (3.5-5.0) g/dL Urine Color Yellow Urine Appearance Cloudy H (Clear) Urine pH 7.0 (5.0-8.0) Ur Specific [place] 1.033 (1.001-1.035) Urine Protein 1+ H (Negative) Urine Glucose (UA) Negative (Negative) Urine Ketones 1+ H (Negative) Urine Blood Negative (Negative) Urine Nitrite Negative (Negative) Urine Bilirubin 1+ H (Negative) Urine Urobilinogen 8.0 (<2.0) mg/dL Ur Leukocyte Esterase Large H (Negative) Urine RBC 16 H (0-5) /hpf Urine WBC 36 H (0-5) /hpf Ur Squamous Epith Cells 48 H (0-4) /hpf Urine Bacteria Occasional H (None) /hpf Urine Mucus Many H (None) /hpf 07/24/20 07/24/20 Range/Units 11:29 11:29 WBC (3.8-10.6) k/uL RBC (3.80-5.40) m/uL Hgb (11.4-16.0) gm/dL Hct (34.0-46.0) % MCV (80.0-100.0) fL MCH (25.0-35.0) pg MCHC (31.0-37.0) g/dL RDW (11.5-15.5) % Plt Count (150-450) k/uL MPV Neutrophils % % Lymphocytes % % Monocytes % % Eosinophils % % Basophils % % Neutrophils # (1.3-7.7) k/uL Lymphocytes # (1.0-4.8) k/uL Monocytes # (0-1.0) k/uL Eosinophils # (0-0.7) k/uL Basophils # (0-0.2) k/uL PT (9.0-12.0) sec INR (<1.2) APTT (22.0-30.0) sec Sodium 140 (137-145) mmol/L Potassium 4.5 (3.5-5.1) mmol/L Chloride 104 (98-107) mmol/L Carbon Dioxide 24 (22-30) mmol/L Anion Gap 12 mmol/L BUN 13 (7-17) mg/dL Creatinine 0.64 (0.52-1.04) mg/dL Est GFR (CKD-EPI)AfAm >90 (>60 ml/min/1.73 sqM) Est GFR (CKD-EPI)NonAf >90 (>60 ml/min/1.73 sqM) Glucose 101 H (74-99) mg/dL Calcium 10.0 (8.4-10.2) mg/dL Total Bilirubin 0.4 (0.2-1.3) mg/dL AST 26 (14-36) U/L ALT 22 (4-34) U/L Alkaline Phosphatase 83 (38-126) U/L Troponin I <0.012 (0.000-0.034) ng/mL Total Protein 8.3 H (6.3-8.2) g/dL Albumin 4.6 (3.5-5.0) g/dL Urine Color Urine Appearance (Clear) Urine pH (5.0-8.0) Ur Specific [place] (1.001-1.035) Urine Protein (Negative) Urine Glucose (UA) (Negative) Urine Ketones (Negative) Urine Blood (Negative) Urine Nitrite (Negative) Urine Bilirubin (Negative) Urine Urobilinogen (<2.0) mg/dL Ur Leukocyte Esterase (Negative) Urine RBC (0-5) /hpf Urine WBC (0-5) /hpf Ur Squamous Epith Cells (0-4) /hpf Urine Bacteria (None) /hpf Urine Mucus (None) /hpf Disposition Clinical Impression: Vasovagal syncope, Dental abscess, UTI (urinary tract infection) Disposition: HOME SELF-CARE Condition: Stable Instructions (If sedation given, give patient instructions): Urinary Tract Infection in Women (ED) Additional Instructions: Please return to the Emergency Department if symptoms worsen or any other concerns. Please take antibiotic as prescribed. Please be sure to drink plenty of fluids while taking antibiotics. Follow-up with your regular doctor. Prescriptions: Clindamycin HCl 300 mg PO Q8H 7 Days #21 cap Is patient prescribed a controlled substance at d/c from ED?: No Referrals: Nolan Reyes DO [Primary Care Provider] - 1-2 days
[2020-07-24 11:59] LABS: Appearance,Urine Cloudy (Clear); Bacteria,Urine Occasional /hpf; Bilirubin,Urine 1+ (Negative); Blood,Urine Negative (Negative); Color,Urine Yellow; Glucose,Urine (UA) Negative (Negative); Ketones,Urine 1+ (Negative); Leukocyte Esterase,Urine Large (Negative); Mucus,Urine Many /hpf; Nitrite,Urine Negative (Negative); Protein,Urine 1+ (Negative); RBC,Urine 16 /hpf (0-5); Specific Gravity,Urine 1.033 (1.001-1.035); Squamous Epithelial Cell,Urine 48 /hpf (0-4); WBC,Urine 36 /hpf (0-5)
[2020-07-24 12:10] LABS: INR 0.9 (<1.2); Partial Thromboplastin Time 21.9 sec (22.0-30.0); Prothrombin Time 9.6 sec (9.0-12.0)
--- NOTE | 2020-07-24 12:14 | XR ---
EXAMINATION TYPE: XR chest 2V DATE OF EXAM: 07/24/2020 COMPARISON: 06/22/2020 HISTORY: Chest pain TECHNIQUE: Frontal and lateral views of the chest are obtained. FINDINGS: There is no focal air space opacity. No evidence for pneumothorax. No pleural effusion. The cardiac silhouette size is within normal limits. The osseous structures are grossly intact. IMPRESSION: 1. No acute cardiopulmonary process.
[2020-07-24 12:50] VITALS: BP 108/63; PULSE 77; TEMP 98.5
== END 2020-07-24 12:55 | disposition home or self-care (01) ==
LOC: EC 10:33
DX: K04.7 Periapical abscess without sinus (principal); N39.0 Urinary tract infection, site not specified; R55 Syncope and collapse; F17.200 Nicotine dependence, unspecified, uncomplicated; Z88.5 Allergy status to narcotic agent; Z88.0 Allergy status to penicillin
CPT/HCPCS: 36415; 71046; 80053; 81001; 84484; 85025; 85610; 85730; 87086; 93005; 96360; 99284

== ENCOUNTER → 2020-09-25 | Outpatient (CLI) | payer OTHER | END | disposition home or self-care (01) | LOC: LABWHC1 16:19 | PROVIDERS: ATTEND Family Medicine | DX: Z20.822 Contact with and (suspected) exposure to COVID-19 (principal) | CPT/HCPCS: U0003; C9803; U0005 ==

== ENCOUNTER 2020-10-06 21:27 | Emergency (ER) | payer OTHER ==
[2020-10-06 21:59] VITALS: BP 126/87; PULSE 70; RESP 18; TEMP 98.5
[2020-10-07] MEDS ORDERED: KETOROLAC 15 MG/ML 1 ML VIAL IM STA (01:11)
--- NOTE | 2020-10-07 01:26 | ED ---
General Adult HPI - General Chief complaint: Headache Stated complaint: Head and neck pain Time Seen by Provider: 10/07/20 00:54 Source: patient Mode of arrival: ambulatory Limitations: no limitations - History of Present Illness Initial comments: 29-year-old female presents to the emergency room for head and neck pain times months. 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 States that she is supposed to be seeing a office support assistant for this in a month. Patient states it comes and goes. States that sometimes when the pain occurs she will feel lightheaded. States she was previously seen in the ER for this several months ago. Patient reports that the pain worsened again so she decided to be seen in the emergency room.Patient has no other complaints at this time including shortness of breath, chest pain, abdominal pain, nausea or vomiting, headache, or visual changes. - Related Data Home Medications Medication Instructions Recorded Confirmed Amoxicillin/Potassium Clav 1 tab PO Q12HR 07/24/20 07/24/20 [Augmentin 875-125 Tablet] Previous Rx's Medication Instructions Recorded Clindamycin HCl 300 mg PO Q8H 7 Days #21 cap 07/24/20 Allergies Allergy/AdvReac Type Severity Reaction Status Date / Time codeine Allergy Unknown Verified 10/06/20 21:59 Childhood Penicillins Allergy Unknown Verified 10/06/20 21:59 Childhood Review of Systems ROS Statement: Those systems with pertinent positive or pertinent negative responses have been documented in the HPI. ROS Other: All systems not noted in ROS Statement are negative. Past Medical History Past Medical History: No Reported History History of Any Multi-Drug Resistant Organisms: None Reported Past Surgical History: Cholecystectomy, Tonsillectomy Past Psychological History: No Psychological Hx Reported Smoking Status: Current every day smoker Past Alcohol Use History: None Reported Past Drug Use History: Marijuana General Exam Limitations: no limitations General appearance: alert, in no apparent distress Head exam: Present: atraumatic, normocephalic, normal inspection Eye exam: Present: normal appearance, PERRL, EOMI. Absent: scleral icterus, conjunctival injection, periorbital swelling ENT exam: Present: normal exam, mucous membranes moist Neck exam: Present: normal inspection, full ROM. Absent: tenderness, meningismus, lymphadenopathy Respiratory exam: Present: normal lung sounds bilaterally. Absent: respiratory distress, wheezes, rales, rhonchi, stridor Cardiovascular Exam: Present: regular rate, normal rhythm, normal heart sounds. Absent: systolic murmur, diastolic murmur, rubs, gallop, clicks GI/Abdominal exam: Present: soft, normal bowel sounds. Absent: distended, tenderness, guarding, rebound, rigid Neurological exam: Present: alert, oriented X3, normal gait, other (GCS 15) Course Vital Signs 10/06/20 21:57 Temperature 98.5 F Pulse Rate 70 Respiratory 18 Rate Blood Pressure 126/87 O2 Sat by Pulse 100 Oximetry Medical Decision Making - Medical Decision Making Vitals are stable. No focal neurologic deficits. Patient is well-appearing. This has been ongoing for months. Patient is seeing a office support assistant. Patient states she has a neck pain and feels a tightness goes up the back of her head. Patient given Toradol for pain. I did referred to orthopedics as she could benefit from MRI of the neck. If she has any weakness of the arms or any other worsening symptoms she'll return here to the emergency room. This was discussed with her. Disposition Clinical Impression: Cephalgia, Neck pain Disposition: HOME SELF-CARE Condition: Good Instructions (If sedation given, give patient instructions): Acute Headache (ED) Additional Instructions: Please take Motrin and Tylenol for pain. Follow-up with your doctor in one to 2 days. Follow up with orthopedics as well. Return to the emergency room for any worsening symptoms. Is patient prescribed a controlled substance at d/c from ED?: No Referrals: Nolan Reyes DO [Primary Care Provider] - 1-2 days Sam Marie MD [STAFF PHYSICIAN] - 1-2 days Time of Disposition: 01:26
== END 2020-10-07 01:53 | disposition home or self-care (01) ==
LOC: EC 21:27
DX: R51.9 Headache, unspecified (principal); M54.2 Cervicalgia; R42 Dizziness and giddiness; F17.200 Nicotine dependence, unspecified, uncomplicated; Z88.0 Allergy status to penicillin; Z88.5 Allergy status to narcotic agent
CPT/HCPCS: 99283; 96372; J1885

== ENCOUNTER 2021-01-26 12:38 | Emergency (ER) | payer OTHER ==
[2021-01-26 12:59] VITALS: BP 119/67; PULSE 63; RESP 20; TEMP 98.1
[2021-01-26] MEDS ORDERED: MORPHINE SULFATE 4 MG/ML SYRINGE IM STA (13:41)
--- NOTE | 2021-01-26 13:45 | ED ---
General Adult HPI - General Chief complaint: Recheck/Abnormal Lab/Rx Stated complaint: rt arm fx, fingers numb Time Seen by Provider: 01/26/21 13:26 Source: patient Mode of arrival: ambulatory Limitations: no limitations - History of Present Illness Initial comments: Dictation was produced using [employer] dictation software. please excuse any grammatical, word or spelling errors. Chief Complaint: 30-year-old female presents to the emergency department for right hand pain. History of Present Illness: 30-year-old female 1 week ago she punched the wall. She supposedly went to the emergency department [facility] and was found to have a fractured fifth metacarpal. She is placed in a splint. Couple days ago she went to [facility] to be reevaluated because of increased pain. States that over the last couple days she's been having increase paresthesias to all of her fingertips. States that she has pain whenever she moves her hand. She had a repeat x-ray during her last visit at [facility] which is found to be unremarkable. Patient was given prescription for pain medications. Patient is scheduled to have a outpatient orthopedic surgery appointment next week. States that she tried to loosen her splint couple times which slightly helped her symptoms. The ROS documented in this emergency department record has been reviewed and confirmed by me. Those systems with pertinent positive or negative responses have been documented in the HPI. All other systems are other negative and/or noncontributory. PHYSICAL EXAM: General Impression: Alert and oriented x3, not in acute distress HEENT: Normocephalic atraumatic, extra-ocular movements intact, pupils equal and reactive to light bilaterally, mucous membranes moist. Cardiovascular: Heart regular rate and rhythm Chest: Able to complete full sentences, no retractions, no tachypnea Abdomen: abdomen soft, non-tender, non-distended, no organomegaly Musculoskeletal: Pulses present and equal in all extremities, no peripheral edema Motor: no focal deficits noted Neurological: CN II-XII grossly intact, no focal motor or sensory deficits noted Skin: Intact with no visualized rashes Psych: Normal affect and mood Right upper extremity: Splint was removed. Good coloration to the distal fingertips, no gross deformities noted over the fifth or fourth metacarpal bone. Good radial pulse, intact cap refill ED course: 30-year-old female presents to the emergency department for persistent pain to the right hand with no associated paresthesias to all fing ertips of the right hand. Vital signs upon arrival are within acceptable limits. Physical examination is benign. Splint was removed and revealed benign appearing extremity X-rays unremarkable for any acute processes. There is redemonstration of acute comminuted displaced fracture O proximal to the mid shaft of the fifth MCP slight impaction along with 3 mm dorsal displacement of distal fracture. Patient is well-appearing at the bedside. She does have an outpatient appointment for orthopedic surgery. Patient physical examination is benign for any sort of neurovascular compromise secondary to fracture. Splint was reapplied. - Related Data Home Medications Medication Instructions Recorded Confirmed Amoxicillin/Potassium Clav 1 tab PO Q12HR 07/24/20 07/24/20 [Augmentin 875-125 Tablet] Previous Rx's Medication Instructions Recorded Clindamycin HCl 300 mg PO Q8H 7 Days #21 cap 07/24/20 Allergies Allergy/AdvReac Type Severity Reaction Status Date / Time Penicillins Allergy Unknown Verified 01/26/21 12:59 Childhood Review of Systems ROS Statement: Those systems with pertinent positive or pertinent negative responses have been documented in the HPI. ROS Other: All systems not noted in ROS Statement are negative. Past Medical History Past Medical History: No Reported History History of Any Multi-Drug Resistant Organisms: None Reported Past Surgical History: Cholecystectomy, Tonsillectomy Past Psychological History: No Psychological Hx Reported Smoking Status: Current every day smoker Past Alcohol Use History: None Reported Past Drug Use History: Marijuana General Exam Limitations: no limitations Course Vital Signs 01/26/21 12:54 Temperature 98.1 F Pulse Rate 63 Respiratory 20 Rate Blood Pressure 119/67 O2 Sat by Pulse 99 Oximetry Disposition Clinical Impression: Hand pain, Closed fracture of 5th metacarpal Disposition: HOME SELF-CARE Condition: Good Additional Instructions: Follow-up with your orthopedic surgery appointment as scheduled Is patient prescribed a controlled substance at d/c from ED?: No
--- NOTE | 2021-01-26 14:04 | XR ---
EXAMINATION TYPE: XR hand complete RT DATE OF EXAM: 01/26/2021 CLINICAL HISTORY: Increased pain and numbness with difficulty moving fingers. TECHNIQUE: Frontal, lateral and oblique images of the right hand are obtained. COMPARISON: Right hand x-ray November 20, 2019. FINDINGS: Overlying gauze or bandage material at level of fourth and fifth fingers makes evaluation at this level slightly suboptimal. There is acute comminuted displaced fracture proximal to mid shaft of the fifth metacarpal with slight impaction along with 3 mm dorsal displacement of distal fracture fragment seen best on lateral view. Incomplete extension of phalanges is identified. Possible old av ulsion type fracture from ulnar styloid again seen. IMPRESSION: As above.
== END 2021-01-26 14:31 | disposition home or self-care (01) ==
LOC: EC 12:38
DX: S62.326A Displaced fracture of shaft of fifth metacarpal bone, right hand, initial encounter for closed fracture (principal); S62.336A Displaced fracture of neck of fifth metacarpal bone, right hand, initial encounter for closed fracture; F17.200 Nicotine dependence, unspecified, uncomplicated; Z88.0 Allergy status to penicillin; W22.09XA Striking against other stationary object, initial encounter; Y92.009 Unspecified place in unspecified non-institutional (private) residence as the place of occurrence of the external cause
CPT/HCPCS: 99284; 96372; 73130; J2270

== ENCOUNTER 2021-02-02 11:38 | Day surgery (SDC) | payer OTHER ==
[2021-02-01 13:02] VITALS: BMI 28.8
--- NOTE | 2021-02-01 13:18 | HP ---
HISTORY AND PHYSICAL CHIEF COMPLAINT: Right hand pain. 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 She notes she punched a wall in her kitchen at home. Initially she was seen in the emergency room and was placed in a splint. She has had pain since. She denies previous injury. PAST MEDICAL HISTORY: Past medical history is significant for depression and asthma. PAST SURGICAL HISTORY: Past surgical history is significant for cholecystectomy. CURRENT MEDICATIONS: None. ALLERGIES: SHE DENIES DRUG ALLERGIES. FAMILY HISTORY: Negative. SOCIAL HISTORY: Significant for one pack per day tobacco use. REVIEW OF SYSTEMS: Sixteen-point review of systems is otherwise reviewed and is noncontributory. PHYSICAL EXAMINATION: On examination, the patient is approximately 5 feet 8 inches, 190 pounds of endomorphic habitus. HEENT exam is nonfocal. Neck is supple. She is nontender about the right shoulder, elbow and wrist. On examination of her right hand, she is tender about the fifth metacarpal shaft. The skin is intact. She has moderate dorsal swelling. No rotational abnormality of the fifth digit is noted. She has limited range of motion secondary to pain. Her distal neurovascular exam is intact in the left digits. X-rays of the right hand obtained in the office show a fifth metacarpal shaft fracture with moderate displacement and hand angulation. IMPRESSION: Right fifth metacarpal shaft fracture, displaced/angulated. RECOMMENDATIONS: I talked to the patient at length regarding her condition and treatment options. At this point, we will attempt to proceed with closed reduction and percutaneous pinning. We will likely perform that as an outpatient procedure utilizing general anesthesia. Risks and benefits were discussed at length in layman's terms. MMODL / IJN: [id number] /
[2021-02-02 12:15] VITALS: RESP 16
[2021-02-02] MEDS ORDERED: ONDANSETRON 4 MG/2 ML VIAL ONE (12:16)
[2021-02-02] MEDS ORDERED: LIDOCAINE 1% (10MG/ML) FOR IV START INTRADERMA ONE (12:42)
[2021-02-02] MEDS ORDERED: LACTATED RINGERS 1,000 ML IV ONE (12:42)
[2021-02-02] MEDS ORDERED: ONDANSETRON 4 MG/2 ML VIAL IVP ONE (12:42)
[2021-02-02] MEDS ORDERED: DEXAMETHASONE SOD PHOSPHATE 4 MG/ML 1 ML VIAL IV ONE (12:43)
[2021-02-02] MEDS ORDERED: PROPOFOL 10 MG/ML 20 ML VIAL IV ONE (13:05)
[2021-02-02] MEDS ORDERED: ePHEDrine SULFATE/0.9% NACL/PF 50 MG/5 ML SYRINGE IV ONE (13:05)
[2021-02-02] MEDS ORDERED: LIDOCAINE 1% INJ 10MG/ML (20 ML MDV) ONE (13:05)
[2021-02-02] MEDS ORDERED: MIDAZOLAM 2 MG/2 ML VIAL ONE (13:05)
[2021-02-02] MEDS ORDERED: fentaNYL (PF) 50 MCG/ML 2 ML AMP ONE (13:05)
--- NOTE | 2021-02-02 13:49 | P.OP ---
Date of Procedure: 02/02/21 Preoperative Diagnosis: Displaced right fifth metacarpal shaft fractureclosed Postoperative Diagnosis: Same Procedure(s) Performed: Closed reduction with percutaneous pinning right fifth metacarpal shaft fracture Implants: 0.054 inch K wire 1 Anesthesia: BJ Surgeon: Venkat Morris Estimated Blood Loss (ml): 1 Pathology: none sent Condition: stable Disposition: PACU Indications for Procedure: The patient's a 30-year-old female presents after injuring her right hand approximately 2 weeks ago with a displaced right fifth metacarpal shaft fracture. He discussion of the risks and benefits of operative intervention versus conservative measures was made with patient. With the amount of displacement and angulation, she opted to proceed with surgery. Operative options were discussed including open reduction and internal fixation versus closed reduction and pinning. Specific risks of surgery to include infection, neurovascular injury, possible development of nonunion/malunion, probable need for hardware removal were discussed. Informed consent was obtained. Operative Findings: As below Description of Procedure: The patient was brought to the operating room, and after induction of general anesthesia the right upper extremity was prepped and draped in normal fashion. The right fifth metacarpal shaft fracture was reduced with longitudinal traction and manipulation. A 0.054 inch K wire was inserted at the level of the metacarpal head spanning the fracture site with the aid of fluoroscopy. I was able to obtain good alignment. This is verified on AP, lateral, and oblique views. The pin was clipped below level of skin. The rotation of the right fifth digit appeared symmetric to the other digits. A sterile dressing was applied in addition to an ulnar gutter splint with the hand in functional position. The patient was then awoken from general anesthesia and transferred to recovery room in good condition. Blood loss was estimated at 1 mL. No complications were incurred.
[2021-02-02 13:54] VITALS: TEMP 96.8
[2021-02-02] MEDS ORDERED: KETOROLAC 15 MG/ML 1 ML VIAL ONE (14:02)
[2021-02-02] MEDS ORDERED: KETOROLAC 15 MG/ML 1 ML VIAL IVP ONE (14:05)
[2021-02-02] MEDS ORDERED: HYDROmorphone 0.5 MG/0.5 ML SYRINGE IVP ONE (14:16)
--- NOTE | 2021-02-02 14:21 | XR ---
EXAMINATION TYPE: XR hand limited RT, FL guidance operating room DATE OF EXAM: 02/02/2021 COMPARISON: Plain film 02/01/20211999 HISTORY: Fifth metacarpal fracture Fluoroscopy support supplied to the referring clinician. See dictated report from orthopedic surgery , 4 intraoperative C-arm images document the procedure, 32 seconds of time supplied
[2021-02-02] MEDS ORDERED: HYDROcodone/APAP 5-325MG 1 EACH TAB ONE (14:40)
[2021-02-02] MEDS ORDERED: HYDROcodone/APAP 5-325MG 1 EACH TAB PO ONE (14:41)
[2021-02-02 15:08] VITALS: BP 104/69; PULSE 65
== END 2021-02-02 15:27 | disposition home or self-care (01) ==
LOC: OR 11:38
PROVIDERS: ATTEND Orthopaedic Surgery
DX: M79.641 Pain in right hand (principal); F32.9 Major depressive disorder, single episode, unspecified; J45.909 Unspecified asthma, uncomplicated; Z88.0 Allergy status to penicillin; F17.200 Nicotine dependence, unspecified, uncomplicated; F12.90 Cannabis use, unspecified, uncomplicated
CPT/HCPCS: 26608; 73120; J2250; J1100; J2405; J2001; J3010; J1885; J2704; J1170

== ENCOUNTER 2021-03-26 07:25 | Day surgery (SDC) | payer OTHER ==
[2021-03-24 15:15] VITALS: BMI 29.3
--- NOTE | 2021-03-25 12:10 | HP ---
HISTORY AND PHYSICAL CHIEF COMPLAINT: Right hand pain. HISTORY OF PRESENT ILLNESS: Patient is a 30-year-old right-hand dominant female who presents after undergoing closed reduction and pinning of a right 5th metacarpal shaft fracture previously. Clinically, she was noted to have united the fracture, however, had persistent irritation over the pin site. PAST MEDICAL HISTORY: Otherwise noncontributory. PAST SURGICAL HISTORY: Significant for closed reduction and pinning of right 5th metacarpal shaft fracture. CURRENT MEDICATIONS: None. ALLERGIES: She has allergies to PENICILLIN. FAMILY HISTORY: Noncontributory. SOCIAL HISTORY: Negative for current tobacco or alcohol use. REVIEW OF SYSTEMS: Sixteen-point review of systems otherwise reviewed and is noncontributory. PHYSICAL EXAMINATION: On examination, the patient is approximately 5 foot 8, 190 pounds of endomorphic habitus. HEENT exam is nonfocal. NECK is supple. She is nontender about the right shoulder elbow and wrist. On examination of right hand, she is mildly tender over the prominent palpable pin over the 5th metacarpal head. She has no rotational abnormality of the fifth digit. She has moderate digital stiffness. She is nontender over the fifth metacarpal shaft. X-rays of the right hand obtained in the office show previous pinning of a fifth metacarpal shaft fracture with moderate callus formation. IMPRESSION: 1. Status post closed reduction and pinning, right fifth metacarpal shaft fracture. 2. Irritating hardware, right fifth digit. RECOMMENDATIONS: I talked to the patient at length regarding her condition and treatment options. At this point, she is symptomatic and opts to proceed with removal of the pin. We will likely perform that utilizing local anesthetic and IV sedation as an outpatient procedure. Risks and benefits were discussed at length in layman's terms. MMODL / IJN: [id number] / SADIA
[~2021-03-26 07:25] MED LIST: DEXAMETHASONE SOD PHOSPHATE 4 MG/ML 1 ML VIAL IV ONE; HYDROmorphone 0.5 MG/0.5 ML SYRINGE IVP PRN; LACTATED RINGERS 1,000 ML IV SCH; MIDAZOLAM 2 MG/2 ML VIAL IV PRN; ONDANSETRON 4 MG/2 ML VIAL IVP ONE; SCOPOLAMINE 1.5MG/72HR PATCH TRANSDERM ONE
[2021-03-26 08:04] VITALS: RESP 16; TEMP 97.1
[2021-03-26] MEDS ORDERED: fentaNYL (PF) 50 MCG/ML 2 ML AMP ONE (09:03)
[2021-03-26] MEDS ORDERED: PROPOFOL 10 MG/ML 20 ML VIAL IV ONE (09:03)
[2021-03-26] MEDS ORDERED: KETOROLAC 15 MG/ML 1 ML VIAL ONE (09:03)
[2021-03-26] MEDS ORDERED: MIDAZOLAM 2 MG/2 ML VIAL ONE (09:03)
[2021-03-26] MEDS ORDERED: LIDOCAINE 1% INJ 10MG/ML (20 ML MDV) ONE (09:03)
[2021-03-26] MEDS ORDERED: BUPIVACAINE (PF) 0.25% 30 ML VIAL SQ ONE (09:21)
--- NOTE | 2021-03-26 09:32 | P.OP ---
Date of Procedure: 03/26/21 Preoperative Diagnosis: Irritating hardware right fifth digit Postoperative Diagnosis: Same Procedure(s) Performed: Removal K wire right fifth digit/metacarpal Anesthesia: MAC, local Surgeon: Venkat Morris Estimated Blood Loss (ml): 1 Pathology: none sent Condition: stable Disposition: PACU Indications for Procedure: The patient's a 30-year-old female presents with irritation of her right hand secondary to retained hardware after undergoing previous closed reduction and pinning of fifth metacarpal fracture. A discussion of the risks and benefits of removal of the hardware was made with the patient. She opted to proceed. Operative risks to include residual stiffness and possible need for subsequent procedures was discussed. Informed consent was obtained. Operative Findings: As below Description of Procedure: The patient was brought to the operating room, and after induction of IV sedation the right upper extremity was prepped and draped in normal fashion. The proposed incision site was outlined with a skin marker. 2 mL of quarter percent plain Marcaine was injected into the local area. A 3 mm stab incision was then made in the skin. Subcu tissues were divided bluntly. The K wire was easily removed. The wound was irrigated with normal saline. The skin was reapproximated with simple 4-0 nylon suture. A sterile dressing was applied. The patient was awoken from sedation and transferred to recovery room in good condition. Blood loss was estimated 1 mL. No complications were incurred.
[2021-03-26 09:51] VITALS: BP 109/73; PULSE 45
== END 2021-03-26 10:30 | disposition home or self-care (01) ==
LOC: OR 07:25
PROVIDERS: ATTEND Orthopaedic Surgery
DX: T84.84XA Pain due to internal orthopedic prosthetic devices, implants and grafts, initial encounter (principal); J45.909 Unspecified asthma, uncomplicated; F41.9 Anxiety disorder, unspecified; F32.9 Major depressive disorder, single episode, unspecified; Z88.0 Allergy status to penicillin
CPT/HCPCS: 81025; 26320; J2250; J1100; J0690; J2405; J2001; J3010; J1885; J2704

== ENCOUNTER 2021-03-26 19:06 | Emergency (ER) | payer OTHER ==
[2021-03-26 19:12] VITALS: RESP 18; TEMP 98.2
[2021-03-26] MEDS ORDERED: KETOROLAC 15 MG/ML 1 ML VIAL IVP STA (19:37)
--- NOTE | 2021-03-26 19:50 | ED ---
Chest Pain HPI - General Chief Complaint: Chest Pain Stated Complaint: Chest Pain Time Seen by Provider: 03/26/21 19:28 Source: patient, RN notes reviewed Mode of arrival: ambulatory Limitations: no limitations - History of Present Illness Initial Comments: This is a 30-year-old female with a benign history for heart or lung disease who presents with complaints of chest pain for last week or so he got worse after she had pins a lot of her right hand today. Pain is sharp and sometimes as bad as 10/10 severity shortness of breath dizziness she reports some pounding of her chest but no overt palpitations. No fevers chills nausea vomiting or other symptoms. No trauma reported. MD Complaint: chest pain - Related Data Previous Rx's Medication Instructions Recorded Ibuprofen 800 mg PO Q6HR PRN #20 tablet 03/26/21 Allergies Allergy/AdvReac Type Severity Reaction Status Date / Time Penicillins Allergy Unknown Verified 03/26/21 20:50 Childhood Review of Systems ROS Statement: Those systems with pertinent positive or pertinent negative responses have been documented in the HPI. ROS Other: All systems not noted in ROS Statement are negative. EKG Findings - EKG Results: EKG: interpreted by CECELIAD, sinus rhythm (Sinus bradycardia rate of 50. Interval 132 QRS duration 92 QT since QTC of 438/399 low-voltage QRS left anterior fascicular block nonspecific T-wave configuration) Past Medical History Past Medical History: Asthma Additional Past Medical History / Comment(s): Splint on-fx 5th finger on right hand. History of Any Multi-Drug Resistant Organisms: None Reported Past Surgical History: Cholecystectomy, Orthopedic Surgery, Tonsillectomy Additional Past Surgical History / Comment(s): Surgery to 5th metacarpal right hand. Past Anesthesia/Blood Transfusion Reactions: Previous Problems w/ Anesthesia, Postoperative Nausea & Vomiting (PONV) Past Psychological History: Anxiety, Depression Smoking Status: Current every day smoker Past Alcohol Use History: None Reported Past Drug Use History: Marijuana - Past Family History Mother Family Medical History: No Reported History General Exam - General Exam Comments Initial Comments: This is a well-developed well-nourished awake alert oriented 3 Limitations: no limitations General appearance: alert, anxious Head exam: Present: atraumatic, normocephalic, normal inspection Eye exam: Present: normal appearance, PERRL, EOMI. Absent: scleral icterus, c onjunctival injection, periorbital swelling ENT exam: Present: normal exam, mucous membranes moist Neck exam: Present: normal inspection, full ROM, other. Absent: tenderness, meningismus, lymphadenopathy Respiratory exam: Present: normal lung sounds bilaterally, chest wall tenderness (No stridor JVD or bruits reproducible tenderness palpation on both costal sternal margins no overt step-off or crepitation). Absent: respiratory distress, wheezes, rales, rhonchi, stridor Cardiovascular Exam: Present: regular rate, normal rhythm, normal heart sounds. Absent: systolic murmur, diastolic murmur, rubs, gallop, clicks GI/Abdominal exam: Present: soft, normal bowel sounds. Absent: distended, tenderness, guarding, rebound, rigid Extremities exam: Present: normal inspection, full ROM, normal capillary refill. Absent: tenderness, pedal edema, joint swelling, calf tenderness Back exam: Present: normal inspection Neurological exam: Present: alert, oriented X3, CN II-XII intact Psychiatric exam: Present: normal affect, normal mood Skin exam: Present: warm, dry, intact, normal color. 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 I did discuss findings with the patient is patient's consistent with costochondritis and chest wall pain. Patient be discharged on appropriate anti-inflammatories we did discuss warm compresses and the natural history of costochondritis Disposition Clinical Impression: Costochondritis, Chest wall syndrome Disposition: HOME SELF-CARE Condition: Good Instructions (If sedation given, give patient instructions): Costochondritis (ED) Prescriptions: Ibuprofen 800 mg PO Q6HR PRN #20 tablet PRN Reason: Pain Is patient prescribed a controlled substance at d/c from ED?: No Referrals: Nolan Reyes DO [Primary Care Provider] - 1-2 days
[2021-03-26 20:01] LABS: Basophils % (A) 0 %; Eosinophils # (A) 0.1 k/uL (0-0.7); Eosinophils % (A) 1 %; HCT 41.3 % (34.0-46.0); HGB 13.7 gm/dL (11.4-16.0); Lymphocytes # (A) 1.6 k/uL (1.0-4.8); Lymphocytes % (A) 17 %; MCH 31.5 pg (25.0-35.0); MCHC 33.3 g/dL (31.0-37.0); MCV 94.4 fL (80.0-100.0); Monocytes # (A) 0.2 k/uL (0-1.0); Monocytes % (A) 2 %; Neutrophils # (A) 7.1 k/uL (1.3-7.7); Neutrophils % (A) 79 %; Platelet Count 274 k/uL (150-450); RBC 4.37 m/uL (3.80-5.40); RDW 12.7 % (11.5-15.5)
[2021-03-26 20:11] LABS: ALT 19 U/L (4-34); AST 23 U/L (14-36); African American GFR (CKD) >90 (>60 ml/min/1.73 sqM); Albumin 3.7 g/dL (3.5-5.0); Alkaline Phosphatase 94 U/L (38-126); Anion Gap 9 mmol/L; Blood Urea Nitrogen 10 mg/dL (7-17); Calcium 9.3 mg/dL (8.4-10.2); Carbon Dioxide 19 mmol/L (22-30); Chloride 111 mmol/L (98-107); Glucose 122 mg/dL (74-99); Magnesium 1.7 mg/dL (1.6-2.3); Non-African American GFR(CKD) >90 (>60 ml/min/1.73 sqM); Potassium 4.1 mmol/L (3.5-5.1); Sodium 139 mmol/L (137-145); Total Bilirubin 0.3 mg/dL (0.2-1.3); Total Protein 6.8 g/dL (6.3-8.2)
[2021-03-26 20:15] LABS: INR 0.9 (<1.2); Prothrombin Time 9.8 sec (9.0-12.0)
--- NOTE | 2021-03-26 20:37 | XR ---
EXAMINATION TYPE: XR chest 2V DATE OF EXAM: 03/26/2021 COMPARISON: 07/24/2020 HISTORY: Chest pain TECHNIQUE: FINDINGS: Heart and mediastinum are normal. Lungs are clear. Diaphragm is normal. Bony thorax is inta ct IMPRESSION: Normal chest. No change.
[2021-03-26 21:11] VITALS: BP 113/74; PULSE 46
== END 2021-03-26 21:28 | disposition home or self-care (01) ==
LOC: EC 19:06
DX: M94.0 Chondrocostal junction syndrome [Tietze] (principal); R07.1 Chest pain on breathing; J45.909 Unspecified asthma, uncomplicated; F17.200 Nicotine dependence, unspecified, uncomplicated; Z88.0 Allergy status to penicillin
CPT/HCPCS: 36415; 71046; 80053; 83735; 83880; 84484; 85025; 85379; 85610; 85730; 96374; 99285

== ENCOUNTER → 2023-02-01 | Outpatient (CLI) | payer OTHER ==
--- NOTE | 2023-02-01 11:34 | CT ---
EXAMINATION TYPE: CT brain wo/w con DATE OF EXAM: 02/01/2023 COMPARISON: 10/22/2017 HISTORY: Follow up for stroke x1 year ago. CT DLP: 2094.2 mGycm Automated exposure control for dose reduction was used. CONTRAST: CT scan of the head is performed without and with IV Contrast, patient injected with 100ml mL of Isov ue 300. FINDINGS: Mild basal ganglia calcifications are noted and there is areas of abnormal low attenuation within the right basal ganglia and within the white matter suggestive of. There is no midline shift or mass eff ect. Following contrast enhancement no enhancing mass. No midline shift. Calvarium intact. Cerebellar tonsils are low-lying measuring 2 mm below the foramen magnum. Orbits ar e symmetric. Sinuses are clear. Soft tissue within the external auditory canals and correlated near e xam. Most likely represents air wax.. IMPRESSION: 1. There is evidence of remote ischemic change involving the right basal ganglia and white matter wit h no diagnostic evidence of enhancing mass or mass effect. 2. Low-lying cerebellar tonsils recommend MRI to assess for Chiari malformation.
== END | disposition home or self-care (01) ==
LOC: RADCTMAIN 10:10
PROVIDERS: ATTEND Family Medicine
DX: I67.82 Cerebral ischemia (principal); I63.9 Cerebral infarction, unspecified; G93.5 Compression of brain; Z86.73 Personal history of transient ischemic attack (TIA), and cerebral infarction without residual deficits; R90.82 White matter disease, unspecified
CPT/HCPCS: 70470; Q9967

== ENCOUNTER → 2023-02-24 | Outpatient (CLI) | payer OTHER ==
--- NOTE | 2023-02-24 11:58 | MR ---
EXAMINATION TYPE: MR brain wo con DATE OF EXAM: 02/24/2023 11:33 AM COMPARISON: NONE HISTORY: CVA, Chiari Malformation, left side weakness and numbness Multiplanar and multispin-echo imaging of the brain was performed . The ventricles, basal cisterns and sulci overlying the cerebral convexities are within normal limits. Remote insult right basal ganglia with surrounding decreased signal suggesting hemosiderin depositio n. There is no evidence for midline shift or mass effect. Acute intracranial hemorrhage or extra-axial collection is not evident. Cerebellar tonsils extend just beyond the confines of the foramen magnum by approximately 3 mm. No Ch iari malformation seen at this time. No acute edema is identified. The paranasal sinuses and mastoid air cells are well-aerated. IMPRESSION: 1.Remote insult right basal ganglia with surrounding decreased signal suggesting hemosiderin depositi on. 2. Low-lying cerebellar tonsils.
== END | disposition home or self-care (01) ==
LOC: RADMRIMAIN 09:58
PROVIDERS: ATTEND Family Medicine
DX: I63.9 Cerebral infarction, unspecified (principal); Q07.00 Arnold-Chiari syndrome without spina bifida or hydrocephalus; J35.8 Other chronic diseases of tonsils and adenoids
CPT/HCPCS: 70551